=== PATIENT | male | born 1945 | race African-American/Black ===

== ENCOUNTER 2016-07-06 01:17 | Emergency (ER) | payer OTHER, MEDICARE ==
[2016-07-06] MEDS ORDERED: CIPROFLOXACIN 250 MG TABLET (RESTRICTED TO ID) PO ONE ×2 (01:25→01:31)
--- NOTE | 2016-07-06 01:25 | PDOC ---
History of Present Illness - General Chief Complaint: Urinary Problem Stated Complaint: URINARY RETENTION Time Seen by Provider: 07/06/16 01:25 History Source: Patient Exam Limitations: No Limitations - History of Present Illness Initial Comments: 07/06/16 01:26 This is an elderly 70-year-old man with history of urinary retention who comes in complaining of unable to urinate times last several hours. Fully was placed by nursing and return of about 700 mL of urine. Patient felt much better. Patient denied any fevers chills or abdominal pain or back pain. PAST MEDICAL HISTORY: Urinary retention PAST SURGICAL HISTORY: no significant history FAMILY HISTORY: no pertinant history SOCIAL HISTORY: Pt lives with family and is employed. MEDICATIONS: reviewed ALLERGIES: As per nursing notes Review of Systems General: No fevers or chills, no weakness, no weight loss HEENT: No change in vision. No sore throat,. No ear pain CardioVascular: No chest pain or shortness of breath Respiratory:No cough, or wheezing. Gastrointestinal: no nausea, vomitting, diarrhea or constipation, No rectal bleeding Genitourinary: No dysuria, hematuria, or frequency, urinary retention Musculoskeletal: No joint or muscle pain or swelling Neurologic: No headache, vertigo, dizziness or loss of consciousness Psychiatric: nor depression Skin: No rashes or easy bruising Endocrine: no increased thirst or abnormal weight change Allergic: no skin or latex allergy All other systems reviewed and normal Exam: General: Well-nourished well-developed individual, no acute distress HEENT: Throat: Normal, tonsils normal, no erythema or exudate Neck: Supple, no meningeal signs, no lymphadenopathy Eyes::Pupils equal reactive and round, extraocular motion intact Chest: Nontender to palpation Abdomen: Soft, nondistended, normal bowel sounds, nontender to palpation diffusely There is no back, or CVA tenderness Extremities: Warm, dry, no cyanosis, clubbing, or edema Skin: No rashes Neuro: Alert and oriented x3, nonfocal exam, grossly intact, normal gait Psych: Normal mood and affect Assessment and plan: This is a 70-year-old male who comes in complaining of acute urinary retention. Patient had a Wills placed with return of approximately 700 mL of urine. Patient started on Cipro to prevent a urinary tract infection and was discharged home with a day. Patient has a urologist he can follow-up with. Past History - Past Medical History Allergies/Adverse Reactions: Allergies Allergy/AdvReac Type Severity Reaction Status Date / Time No Known Allergies Allergy Verified 07/06/16 01:18 Home Medications: Ambulatory Orders Dutasteride/Tamsulosin HCl [Amber 0.5-0.4 mg Capsule] 1 each PO DAILY 10/26/13 Travoprost [Travatan Z] 1 drop OU DAILY 01/25/16 Ciprofloxacin [Cipro (Restricted To Id)] 250 mg PO BID #14 tablet 07/06/16 Cancer: Yes (COLON AND LUNG, NOT prostate) Disorders: Yes (URINARY RETENTION, PROSTATE HYPERTOPHY) - Surgical History Abdominal Surgery: Yes (COLON RESECTION TEMPORARY (NOW CLOSED) JEJUNOSTOMY) - Immunization History Immunization Up to Date: Yes - Psycho/Social/Smoking Cessation Hx Anxiety: No Suicidal Ideation: No Smoking Status: Yes Smoking History: Never smoked Have you smoked in the past 12 months: No Number of Cigarettes Smoked Daily: 1 Cigars Per Day: 0 'Breaking Loose' booklet given: 10/26/13 Hx Alcohol Use: Yes (RARE) Drug/Substance Use Hx: No Substance Use Type: None *DC/Admit/Observation/Transfer Diagnosis at time of Disposition: Urinary retention due to benign prostatic hyperplasia - Discharge Dispostion Disposition: HOME Condition at time of disposition: Stable Admit: No - Prescriptions Prescriptions: Ciprofloxacin [Cipro (Restricted To Id)] 250 mg PO BID #14 tablet - Patient Instructions Additional Instructions: Take Cipro 1 tablet twice a day to prevent a bladder infection. Return to the emergency department immediately with ANY new, persistent or worsening symptoms. Continue any medications as previously prescribed by your physician. You should follow up with your urologist as soon as possible regarding today's emergency department visit. . Please make sure your doctor reviews the results of your emergency evaluation. Thank you for coming to the Emergency Department today for your care. It was a pleasure to see you today. Please note that your evaluation is INCOMPLETE until you follow-up with your doctor.
[2016-07-06 01:28] VITALS: TEMP 97.4; BMI 24.3
[2016-07-06 01:45] VITALS: BP 148/94; PULSE 98
== END 2016-07-06 01:47 | disposition home or self-care (01) ==
LOC: FER 01:17
PROC: 0T9B70Z Drainage of Bladder with Drainage Device, Via Natural or Artificial Opening (ICD-10-PCS; principal; 2016-07-06)
DX: N40.1 Benign prostatic hyperplasia with lower urinary tract symptoms (principal); R33.8 Other retention of urine; Z85.038 Personal history of other malignant neoplasm of large intestine; Z72.0 Tobacco use
CPT/HCPCS: 51702; 99282-25

== ENCOUNTER 2016-09-08 12:32 | Emergency (ER) | payer OTHER, MEDICARE ==
--- NOTE | 2016-09-08 12:37 | PDOC ---
History of Present Illness - General Chief Complaint: Urinary Problem Stated Complaint: URINARY RETENTION Time Seen by Provider: 09/08/16 12:36 History Source: Patient Exam Limitations: No Limitations - History of Present Illness Travel History: No Initial Comments: 09/08/16 13:25 70y M hx of BPH, colon ca s/p surgery presents with urinary retention. Pt states that he last urinated last night, and then was unable to urinate this morning when he got up. pt denies any back pain, abd pain, fever/chills, dysuria , weakness. pts is in [facility] Past History - Past Medical History Allergies/Adverse Reactions: Allergies Allergy/AdvReac Type Severity Reaction Status Date / Time No Known Allergies Allergy Verified 09/08/16 12:34 Home Medications: Ambulatory Orders Dutasteride/Tamsulosin HCl [Amber 0.5-0.4 mg Capsule] 1 each PO DAILY 10/26/13 Travoprost [Travatan Z] 1 drop OU DAILY 01/25/16 Cancer: Yes (COLON AND LUNG, NOT prostate) Disorders: Yes (URINARY RETENTION, PROSTATE HYPERTOPHY) - Surgical History Abdominal Surgery: Yes (COLON RESECTION TEMPORARY (NOW CLOSED) JEJUNOSTOMY) - Immunization History Immunization Up to Date: Yes - Psycho/Social/Smoking Cessation Hx Anxiety: No Suicidal Ideation: No Smoking Status: Yes Smoking History: Never smoked Have you smoked in the past 12 months: No Number of Cigarettes Smoked Daily: 1 Cigars Per Day: 0 'Breaking Loose' booklet given: 10/26/13 Hx Alcohol Use: Yes (RARE) Drug/Substance Use Hx: No Substance Use Type: None Review of Systems - Review of Systems Able to Perform ROS?: Yes Comments:: 09/08/16 13:28 Constitutional - no reported Fever, Chills, HEENT: no reported vision changes, sore throat Respiratory: no reported cough, sob, hemoptysis Cardiac: no reported chest pain, palpitations, light headedness, leg swelling Abd/GI: no reported abd pain, nausea, vomiting, blood per rectum, melena, diarrhea : +urinary retention no reported dysuria, frequency, discharge Musculskelatal - no reported back pain, joint swelling skin - no reported bruising, erythema, rash neurological: no reported headache, numbness, focal weakness, tingling, ataxia, hematologic: no reported anemia, easy bruising, easy bleeding GENERAL: The patient is awake, alert, and fully oriented, Nontoxic - in no acute distress. HEAD: Normocephalic, atraumatic. EYES: extraocular movements intact, sclera anicteric, conjunctiva clear. LUNGS: Breath sounds equal, clear to auscultation bilaterally. No wheezes, no rhonchi, no rales. HEART: Regular rate and rhythm, normal S1 and S2 without murmur, rub or gallop. ABDOMEN: Soft, nontender, normoactive bowel sounds. No guarding, no rebound. . No CVA tenderness EXTREMITIES: Normal range of motion, no edema. NEUROLOGICAL: No facial assymetry, Normal speech, moving all 4 extremities spontaneously and symmetricaly PSYCH: Normal mood, normal affect. SKIN: Warm, Dry, normal turgor, Medical Decision Making - Medical Decision Making 09/08/16 13:29 caballero placed with output of approx 1L of urine awaiting ua to r/o UTI will likely dc with caballero bag and fu if UA negative 09/08/16 14:29 no signs of UTI will dc with fu return precautions were discussed I discussed the physical exam findings, ancillary test results and final diagnoses with the patient. I answered all of the patient's questions. The patient was satisfied with the care received and felt comfortable with the discharge plan and treatment plan. The patient will call their primary care physician within 24 hours to arrange follow-up and will return to the Emergency Department with any new, persistent or worsening symptoms. *DC/Admit/Observation/Transfer Diagnosis at time of Disposition: Urinary retention due to benign prostatic hyperplasia - Discharge Dispostion Disposition: HOME Condition at time of disposition: Stable Admit: No - Referrals Referrals: George Jimenez MD [Staff Physician] - - Patient Instructions Printed Discharge Instructions: DI for Urinary Retention in Men Additional Instructions: Return to the emergency department immediately with ANY new, persistent or worsening symptoms. You MUST call and follow up with your doctor tomorrow for further evaluation of your symptoms. Results were discussed with you. Please make sure your doctor reviews the results of your emergency evaluation. If you had any xrays during your visit, it was read preliminarily by myself, a Radiologist will review it and if there are any additional findings we will call you.
[2016-09-08 12:46] VITALS: BP 149/81; PULSE 92; TEMP 97.8; BMI 24.3
[2016-09-08 14:13] LABS: URINE APPEARANCE Clear; URINE BILIRUBIN Negative (NEGATIVE); URINE GLUCOSE (UA) Negative (NEGATIVE); URINE KETONE Trace (NEGATIVE); URINE LEUK ESTERASE Negative (NEGATIVE); URINE NITRITE Negative (NEGATIVE); URINE PROTEIN Negative (NEGATIVE); URINE UROBILINOGEN 0.2 E.U/dl (0.2-1.0)
[2016-09-08 14:26] LABS: URINE COLOR YELLOW
[2016-09-08 22:49] LABS: URINE BLOOD Trace-intact (NEGATIVE)
== END 2016-09-08 15:13 | disposition home or self-care (01) ==
LOC: FER 12:32
PROC: 0T9B70Z Drainage of Bladder with Drainage Device, Via Natural or Artificial Opening (ICD-10-PCS; principal; 2016-09-08)
DX: N40.1 Benign prostatic hyperplasia with lower urinary tract symptoms (principal); R33.8 Other retention of urine; Z85.038 Personal history of other malignant neoplasm of large intestine
CPT/HCPCS: 51702; 81003; 87086; 99284-25

== ENCOUNTER 2016-12-20 13:05 | Emergency (ER) | payer OTHER, MEDICARE ==
[2016-12-20 13:36] VITALS: BP 146/87; PULSE 89; TEMP 98; BMI 24.1
--- NOTE | 2016-12-20 13:44 | PDOC ---
History of Present Illness - General Chief Complaint: Urinary Problem Stated Complaint: URINARY RETENTION Time Seen by Provider: 12/20/16 13:08 History Source: Patient Exam Limitations: No Limitations - History of Present Illness Travel History: No Initial Comments: 12/20/16 13:26 71y M hx of bph, colon ca presents with urinary retention. last urine was last night approx 2am, since then he has been having some dribbling since last night. Pt states his retention is very sensitive to food items. He notes he occasionally has this problem. Pt denies any back pain, abd pain, f/c, dysuria , maloderous urine, generalized weakness. Pts is at [facility] Past History - Past Medical History Allergies/Adverse Reactions: Allergies Allergy/AdvReac Type Severity Reaction Status Date / Time No Known Allergies Allergy Verified 09/08/16 12:34 Home Medications: Ambulatory Orders Dutasteride/Tamsulosin HCl [Amber 0.5-0.4 mg Capsule] 1 each PO DAILY 10/26/13 Travoprost [Travatan Z] 1 drop OU DAILY 01/25/16 Cancer: Yes (COLON AND LUNG, NOT prostate) Disorders: Yes (URINARY RETENTION, PROSTATE HYPERTOPHY) - Surgical History Abdominal Surgery: Yes (COLON RESECTION TEMPORARY (NOW CLOSED) JEJUNOSTOMY) - Immunization History Immunization Up to Date: Yes - Psycho/Social/Smoking Cessation Hx Anxiety: No Suicidal Ideation: No Smoking Status: Yes Smoking History: Never smoked Have you smoked in the past 12 months: No Number of Cigarettes Smoked Daily: 1 Cigars Per Day: 0 'Breaking Loose' booklet given: 10/26/13 Hx Alcohol Use: Yes (RARE) Drug/Substance Use Hx: No Substance Use Type: None Review of Systems - Review of Systems Able to Perform ROS?: Yes Comments:: 12/20/16 13:44 Constitutional - no reported Fever, Chills, HEENT: no reported vision changes, sore throat Respiratory: no reported cough, sob, hemoptysis Cardiac: no reported chest pain, palpitations, light headedness, leg swelling Abd/GI: no reported abd pain, nausea, vomiting, blood per rectum, melena, diarrhea : +urinary retention no reported dysuria, frequency, discharge Musculskelatal - no reported back pain, joint swelling skin - no reported bruising, erythema, rash neurological: no reported headache, numbness, focal weakness, tingling, ataxia, hematologic: no reported anemia, easy bruising, easy bleeding *Physical Exam - Physical Exam Comments: 12/20/16 13:46 GENERAL: The patient is awake, alert, and fully oriented, Nontoxic - in no acute distress. ABDOMEN: Soft, nontender, slightly distended lower abdmen, normoactive bowel sounds. No guarding, no rebound. . No CVA tenderness SKIN: Warm, Dry, normal turgor, Medical Decision Making - Medical Decision Making 12/20/16 13:47 caballero placed with otput of 500cc of urine immediately will send for ua/culture jalen likely need leg bag and Urology fu 12/20/16 14:15 ua show smoderate bacteria but without LE, nitrites and is asypmtomatic will defer treatment with abx, awaiting cultures pt will fu with his PMD if cultures + will notify pt and give him rx for abx return prcautions were discussed I discussed the physical exam findings, ancillary test results and final diagnoses with the patient. I answered all of the patient's questions. The patient was satisfied with the care received and felt comfortable with the discharge plan and treatment plan. The patient will call their primary care physician within 24 hours to arrange follow-up and will return to the Emergency Department with any new, persistent or worsening symptoms. *DC/Admit/Observation/Transfer Diagnosis at time of Disposition: Urinary retention due to benign prostatic hyperplasia - Discharge Dispostion Disposition: HOME Condition at time of disposition: Improved Admit: No - Referrals Referrals: José Ruiz MD [Primary Care Provider] - - Patient Instructions Printed Discharge Instructions: DI for Urinary Retention in Men Additional Instructions: Return to the emergency department immediately with ANY new, persistent or worsening symptoms including fever/chills, back pain, abdominal pain or any other concerns. You MUST call and follow up with your urologist within 2-3 days for further evaluation of your symptoms. Results were discussed with you. Please make sure your doctor reviews the results of your emergency evaluation. Your urinalysis showed some bacteria but without other markers suggestive of an infection. We have sent a urine culture - if the culture is positive and the results are pending, it will probalby take 1-2 days before results are back, we will call you back and send an antibiotic to your pharmacy. Print Language: GREENLANDIC
[2016-12-20 13:49] LABS: URINE APPEARANCE Clear; URINE BILIRUBIN Negative (NEGATIVE); URINE GLUCOSE (UA) Negative (NEGATIVE); URINE KETONE Negative (NEGATIVE); URINE LEUK ESTERASE Negative (NEGATIVE); URINE NITRITE Negative (NEGATIVE); URINE PROTEIN Negative (NEGATIVE); URINE UROBILINOGEN 0.2 (0.2-1.0)
[2016-12-20 13:50] LABS: URINE BLOOD 1+ (NEGATIVE); URINE COLOR YELLOW; URINE WBC 0-3 (3-5)
[2016-12-20 13:51] LABS: URINE BACTERIA MODERATE /hpf (NEGATIVE)
== END 2016-12-20 14:24 | disposition home or self-care (01) ==
LOC: FER 13:05
PROC: 0T9B70Z Drainage of Bladder with Drainage Device, Via Natural or Artificial Opening (ICD-10-PCS; principal; 2016-12-20)
DX: N40.1 Benign prostatic hyperplasia with lower urinary tract symptoms (principal); R33.8 Other retention of urine; Z85.038 Personal history of other malignant neoplasm of large intestine; Z85.118 Personal history of other malignant neoplasm of bronchus and lung
CPT/HCPCS: 81003; 81015; 87086; 99282-25

== ENCOUNTER 2017-02-24 11:40 | Emergency (ER) | payer OTHER, MEDICARE ==
[2017-02-24 11:47] VITALS: BP 146/86; PULSE 111; TEMP 98.5; BMI 25.8
[2017-02-24 12:08] LABS: PH,URINE 5.5 (4.5-8); URINE APPEARANCE Clear; URINE BILIRUBIN Negative (NEGATIVE); URINE GLUCOSE (UA) Negative (NEGATIVE); URINE KETONE Negative (NEGATIVE); URINE NITRITE Positive (NEGATIVE); URINE PROTEIN Negative (NEGATIVE); URINE UROBILINOGEN 0.2 (0.2-1.0)
[2017-02-24 12:13] LABS: URINE BLOOD 1+ (NEGATIVE); URINE COLOR YELLOW; URINE LEUK ESTERASE 1+ (NEGATIVE)
--- NOTE | 2017-02-24 12:17 | PDOC ---
History of Present Illness - General Chief Complaint: Urinary Problem Stated Complaint: urinary retention Time Seen by Provider: 02/24/17 11:55 - History of Present Illness Initial Comments: 02/24/17 12:13 Chief complaint: Urinary retention and suprapubic pain History of present illness: Urinating only drops of urine since last night, with pain and swelling in the suprapubic area. Periodic bouts of urinary retention in the past, most frequently December, treated with temporary Wills catheterization and resolving spontaneously. No procedures have been necessary thus far. Review of systems: Denies fever/chills, URI symptoms, sore throat, cough, chest pain, shortness of breath, nausea, vomiting, diarrhea, visual or focal neurologic symptoms, unsteadiness of gait. Past medical history: Colon cancer with resection 2001, no recurrence. BPH. Glaucoma. Social/family history reviewed and noncontributory Physical exam: Alert and oriented well-developed well-nourished mild distress due to urinary retention Vital signs normal except for mild tachycardia No pallor or icterus. PERRLA, ENT clear Neck supple without bruit mass or nodes Lungs clear CV regular without murmur rub or gallop Abdomen mildly distended, with bladder palpable and percussing at the umbilicus. No guarding or rebound. No CVAT Impression: Urinary retention Plan: Wills catheterization and urology referral as in the past. 02/24/17 12:17 Past History - Past Medical History Allergies/Adverse Reactions: Allergies Allergy/AdvReac Type Severity Reaction Status Date / Time No Known Allergies Allergy Verified 02/24/17 11:42 Home Medications: Ambulatory Orders Dutasteride/Tamsulosin HCl [Amber 0.5-0.4 mg Capsule] 1 each PO DAILY 10/26/13 Travoprost [Travatan Z] 1 drop OU DAILY 01/25/16 Ciprofloxacin 250 mg PO BID #10 [facility]..rec 02/24/17 Cancer: Yes (COLON AND LUNG, NOT prostate) COPD: No Disorders: Yes (URINARY RETENTION, PROSTATE HYPERTOPHY) - Surgical History Abdominal Surgery: Yes (COLON RESECTION TEMPORARY (NOW CLOSED) JEJUNOSTOMY) - Immunization History Immunization Up to Date: Yes - Suicide/Smoking/Psychosocial Hx Smoking Status: Yes Smoking History: Never smoked Have you smoked in the past 12 months: No Number of Cigarettes Smoked Daily: 1 Cigars Per Day: 0 'Breaking Loose' booklet given: 10/26/13 Hx Alcohol Use: No Drug/Substance Use Hx: No Substance Use Type: None *Physical Exam - Vital Signs Last Vital Signs Temp Pulse Resp BP Pulse Ox 98.5 F 111 H 18 146/86 96 02/24/17 11:41 02/24/17 11:41 02/24/17 11:41 02/24/17 11:41 02/24/17 11:41 Medical Decision Making - Medical Decision Making 02/24/17 12:38 Patient more comfortable after bladder decompression. Large amount of clear urine obtained. Urinalysis shows possible infection with nitrites, leukocyte esterase, and a small amount of blood. *DC/Admit/Observation/Transfer Diagnosis at time of Disposition: Urinary retention UTI (urinary tract infection) Qualifiers: Urinary tract infection type: acute cystitis Hematuria presence: without hematuria Qualified Code(s): N30.00 - Acute cystitis without hematuria - Discharge Dispostion Disposition: HOME Condition at time of disposition: Improved Admit: No - Prescriptions Prescriptions: Ciprofloxacin 250 mg PO BID #10 [facility].[email or web address] - Referrals Referrals: Shakila Palm MD [Primary Care Provider] - - Patient Instructions Printed Discharge Instructions: How to Care for Your Wills Catheter -- Male, DI for Urinary Retention in Men Additional Instructions: See your urologist within 5 days. Recheck immediately if fever, back pain - Post Discharge Activity
[2017-02-24 12:41] LABS: URINE RBC 0-2 /hpf (0-3); URINE WBC 20-40 (0-2)
[2017-02-24 12:42] LABS: URINE BACTERIA MANY /hpf (NEGATIVE)
== END 2017-02-24 12:43 | disposition home or self-care (01) ==
LOC: FER 11:40
PROC: 0T9B70Z Drainage of Bladder with Drainage Device, Via Natural or Artificial Opening (ICD-10-PCS; principal; 2017-02-24)
DX: N30.00 Acute cystitis without hematuria (principal); R33.9 Retention of urine, unspecified; Z85.038 Personal history of other malignant neoplasm of large intestine; N40.0 Benign prostatic hyperplasia without lower urinary tract symptoms
CPT/HCPCS: 51702; 81003; 81015; 87086; 87186; 99282-25

== ENCOUNTER 2017-09-17 13:34 | Emergency (ER) | payer OTHER, BC ==
--- NOTE | 2017-09-17 14:06 | PDOC ---
History of Present Illness - General History Source: Patient Exam Limitations: No Limitations <Anupama Bauman - Last Filed: 09/17/17 14:31> - General History Source: Patient Exam Limitations: No Limitations - History of Present Illness Initial Comments: 09/17/17 14:18 This patient is a 71 yo M with a history of urinary retention, related to a "Sensitive prostate" presents to the ER in urinary retention. The patient states he last urinated yesterday at approximately 11:30PM. The patient complains he has not been able to urinate throughout the day prompting him to come to the ER. The patient has been seen at this ER multiple times for similar symptoms, last seen approximately seven months ago. The patient reports he has required temporary catheter use in the past but has not required surgery. Currently following with a urologist. The patient denies back pain, abdominal pain, fever/chills, dysuria, or weakness. Past medical history: Resection of colon cancer over 15 years ago without recurrence. BPH. Glaucoma. Allergies: None Social history: No drug, alcohol, or cigarette use. PCP: Dr. Smita Lopez <Marilyn Washington - Last Filed: 09/17/17 14:47> - General Chief Complaint: Urinary Problem Stated Complaint: URINARY RETENTION Time Seen by Provider: 09/17/17 13:35 Past History - Past Medical History Cancer: Yes (COLON AND LUNG, NOT prostate) COPD: No Disorders: Yes (URINARY RETENTION, PROSTATE HYPERTOPHY) - Surgical History Abdominal Surgery: Yes (COLON RESECTION TEMPORARY (NOW CLOSED) JEJUNOSTOMY) - Immunization History Immunization Up to Date: Yes - Suicide/Smoking/Psychosocial Hx Smoking Status: Yes Smoking History: Never smoked Have you smoked in the past 12 months: No Number of Cigarettes Smoked Daily: 1 Cigars Per Day: 0 'Breaking Loose' booklet given: 10/26/13 Hx Alcohol Use: No Drug/Substance Use Hx: No Substance Use Type: None <Anupama Bauman - Last Filed: 09/17/17 14:31> <Marilyn Washington - Last Filed: 09/17/17 14:47> - Past Medical History Allergies/Adverse Reactions: Allergies Allergy/AdvReac Type Severity Reaction Status Date / Time No Known Allergies Allergy Verified 09/17/17 14:34 Home Medications: Ambulatory Orders Dutasteride/Tamsulosin HCl [Amber 0.5-0.4 mg Capsule] 1 each PO DAILY 10/26/13 Travoprost [Travatan Z] 1 drop OU DAILY 01/25/16 Review of Systems - Review of Systems Able to Perform ROS?: Yes Comments:: 09/17/17 14:44 GENERAL/CONSTITUTIONAL: No fever or chills. No weakness. HEAD, EYES, EARS, NOSE AND THROAT: No change in vision. No ear pain or discharge. No sore throat. CARDIOVASCULAR: No chest pain or shortness of breath. RESPIRATORY: No cough, wheezing, or hemoptysis. GASTROINTESTINAL: (+) Mild lower abdominal pain. No nausea, vomiting, diarrhea or constipation. GENITOURINARY: (+) Urinary retention. No hematuria or frequency. MUSCULOSKELETAL: No joint or muscle swelling or pain. No neck or back pain. SKIN: No rash NEUROLOGIC: No headache, vertigo, loss of consciousness, or change in strength/ sensation. ENDOCRINE: No increased thirst. No abnormal weight change. HEMATOLOGIC/LYMPHATIC: No anemia, easy bleeding, or history of blood clots. ALLERGIC/IMMUNOLOGIC: No hives or skin allergy. <Marilyn Washington - Last Filed: 09/17/17 14:47> *Physical Exam - Physical Exam Comments: 09/17/17 14:45 GENERAL: The patient is in no acute distress. HEAD: Normal with no signs of trauma. EYES: PERRLA, EOMI, sclera anicteric, conjunctiva clear. ENT: Ears normal, nares patent, oropharynx clear without exudates. Moist mucous membranes. NECK: Normal range of motion, supple without lymphadenopathy, JVD, or masses. LUNGS: Breath sounds equal, clear to auscultation bilaterally. No wheezes, and no crackles. HEART:Regular rate and rhythm, normal S1 and S2 without murmur, rub or gallop. ABDOMEN: Soft, nontender, normoactive bowel sounds. No guarding, no rebound. No masses palpable. : (+) Wills in place. EXTREMITIES: Normal range of motion, no edema. No clubbing or cyanosis. No erythema, or tenderness. NEUROLOGICAL: Cranial nerves II through XII grossly intact. Normal speech. No focal neurological deficits. MUSCULOSKELETAL: Back non-tender to palpation, no CVA tenderness SKIN: Warm, Dry, normal turgor, no rashes or lesions noted. <Marilyn Washington - Last Filed: 09/17/17 14:47> Medical Decision Making - Medical Decision Making 09/17/17 14:31 Mr. Rojas is a 71-year-old male who has had repeated presentations to the emergency department due to urinary retention. He's followed by a urologist. He states that at approximately 11:30 PM he believes that was the last time he urinated. He reported lower abdominal discomfort. Wills catheter was placed immediately with return of clear yellow urine, approximately 600 mL. Patient assess after Wills catheter placed. Abdomen is soft and nontender. Wills in place with return of approximately 600 mL of urine. Discharge diagnosis: Urinary retention due to mechanical obstruction versus urinary tract infection. Urinalysis sent Laboratory Tests 08/05/15 09/17/17 07:20 14:08 Urine Glucose (UA) Negative Urine Ketones Negative Urine Blood Trace-intact Negative Urine Nitrite Negative Negative Ur Leukocyte Esterase Negative Negative UA negative Will discharge to home Follow up with Urologist Clinical Impression: Urinary retention, initial present <Anupama Bauman - Last Filed: 09/17/17 14:31> *DC/Admit/Observation/Transfer - Discharge Dispostion Decision to Admit order: No <Anupama Bauman - Last Filed: 09/17/17 14:31> - Attestations Scribe Attestion: 09/17/17 14:47 Documentation prepared by Marilyn Washington, acting as ophthalmic medical technologist for Anupama Bauman MD. <Marilyn Washington - Last Filed: 09/17/17 14:47> Diagnosis at time of Disposition: Urinary retention with incomplete bladder emptying - Discharge Dispostion Disposition: HOME Condition at time of disposition: Stable - Patient Instructions Printed Discharge Instructions: DI for Urinary Retention in Men
[2017-09-17 14:20] LABS: URINE APPEARANCE Clear; URINE BILIRUBIN Negative (NEGATIVE); URINE BLOOD Negative (NEGATIVE); URINE GLUCOSE (UA) Negative (NEGATIVE); URINE KETONE Negative (NEGATIVE); URINE LEUK ESTERASE Negative (NEGATIVE); URINE NITRITE Negative (NEGATIVE); URINE PROTEIN Negative (NEGATIVE); URINE UROBILINOGEN 0.2 (0.2-1.0)
[2017-09-17 14:24] LABS: URINE COLOR YELLOW
[2017-09-17 14:33] VITALS: BP 147/83; PULSE 89; TEMP 98.1; BMI 23.1
== END 2017-09-17 14:47 | disposition home or self-care (01) ==
LOC: FER 13:34
PROC: 0T9B70Z Drainage of Bladder with Drainage Device, Via Natural or Artificial Opening (ICD-10-PCS; principal; 2017-09-17)
DX: R33.9 Retention of urine, unspecified (principal)
CPT/HCPCS: 81003; 87086; 99282-25

== ENCOUNTER 2017-09-30 10:40 | Emergency (ER) | payer OTHER, BC ==
[2017-09-30 10:54] VITALS: BP 146/80; PULSE 96; TEMP 99; BMI 23.1
[2017-09-30 11:15] LABS: URINE APPEARANCE CLOUDY; URINE BILIRUBIN Negative (NEGATIVE); URINE COLOR AMBER; URINE GLUCOSE (UA) Negative (NEGATIVE); URINE KETONE Negative (NEGATIVE); URINE LEUK ESTERASE 1+ (NEGATIVE); URINE NITRITE Positive (NEGATIVE); URINE PROTEIN Negative (NEGATIVE); URINE UROBILINOGEN 0.2 (0.2-1.0)
[2017-09-30 11:28] LABS: URINE BACTERIA MANY /hpf (NEGATIVE); URINE WBC 50-80 (0-2)
--- NOTE | 2017-09-30 12:28 | PDOC ---
History of Present Illness - General Chief Complaint: Urinary Problem Stated Complaint: URINARY RETENTION Time Seen by Provider: 09/30/17 10:52 History Source: Patient (Patient walked in complaining of inability to urinate, shortly after having left eye catarct surgery.) Exam Limitations: No Limitations - History of Present Illness Timing/Duration: 24 hours Severity: moderate Modifying Factors: worse with: cold therapy, eating, immobilization, medication , movement, rest, other Associated Symptoms: reports: denies symptoms Beta Shane Contraindications(Core Measure): Yes: Not Prescribed Past History - Travel Traveled outside of the country in the last 30 days: No - Past Medical History Allergies/Adverse Reactions: Allergies Allergy/AdvReac Type Severity Reaction Status Date / Time No Known Allergies Allergy Verified 09/30/17 10:42 Home Medications: Ambulatory Orders Dutasteride/Tamsulosin HCl [Amber 0.5-0.4 mg Capsule] 1 each PO DAILY 10/26/13 Travoprost [Travatan Z] 1 drop OU DAILY 01/25/16 Levofloxacin 500 mg PO AM #10 tab 09/30/17 Cancer: Yes (COLON AND LUNG, NOT prostate) COPD: No Disorders: Yes (URINARY RETENTION, PROSTATE HYPERTOPHY) Other medical history: BPH - Surgical History Abdominal Surgery: Yes (COLON RESECTION TEMPORARY (NOW CLOSED) JEJUNOSTOMY) - Immunization History Immunization Up to Date: Yes - Suicide/Smoking/Psychosocial Hx Smoking Status: Yes Smoking History: Never smoked Have you smoked in the past 12 months: No Number of Cigarettes Smoked Daily: 1 Cigars Per Day: 0 Information on smoking cessation initiated: No 'Breaking Loose' booklet given: 10/26/13 Hx Alcohol Use: No (glass of wine 2-3x/week) Drug/Substance Use Hx: No Substance Use Type: None Review of Systems - Review of Systems Able to Perform ROS?: Yes Is the patient limited [place] proficient: Yes Constitutional: Yes: Symptoms Reported, Malaise HEENTM: No: Symptoms Reported, See HPI, Eye Pain, Blurred Vision, Tearing, Recent change in vision, Double Vision, Cataracts, Ear Pain, Ocular Prothesis, Ear Discharge, Nose Pain, Nose Congestion, Tinnitus, Nose Bleeding, Hearing Loss , Throat Pain, Throat Swelling, Mouth Pain, Dental Problems, Difficulty Swallowing, Mouth Swelling, Other Respiratory: No: Symptoms reported, See HPI, Cough, Orthopnea, Shortness of Breath, SOB with Exertion, SOB at Rest, Stridor, Wheezing, Productive cough, Hemoptysis, Other Cardiac (ROS): No: Symptoms Reported, See HPI, Chest Pain, Edema, Irregular Heart Rate, Lightheadedness, Palpitations, Syncope, Chest Tightness, Other ABD/GI: No: Symptoms Reported, See HPI, Abdominal Distended, Abd. Pain w/ defecation, Blood Streaked Bowels, Constipated, Diarrhea, Difficulty Swallowing , Nausea, Poor Appetite, Poor Fluid Intake, Rectal Bleeding, Vomiting, Indigestion, Abdominal cramping, Tarry Stools, Other : Yes: Symptoms Reported, See HPI All Other Systems: Reviewed and Negative *Physical Exam - Vital Signs Last Vital Signs Temp Pulse Resp BP Pulse Ox 99 F 96 H 18 146/80 96 09/30/17 10:40 09/30/17 10:40 09/30/17 10:40 09/30/17 10:40 09/30/17 10:40 - Physical Exam General Appearance: Yes: Nourished, Appropriately Dressed, Moderate Distress ED Treatment Course - ADDITIONAL ORDERS Additional order review: Laboratory Results 09/30/17 11:00 Urine Color Naomie Urine Appearance Cloudy Urine pH 5.0 Ur Specific [place] 1.025 Urine Protein Negative Urine Glucose (UA) Negative Urine Ketones Negative Urine Blood Trace-lysed H Urine Nitrite Positive Urine Bilirubin Negative Urine Urobilinogen 0.2 Ur Leukocyte Esterase 1+ H Urine RBC 5-8 Urine WBC 50-80 Urine Bacteria Many *DC/Admit/Observation/Transfer Diagnosis at time of Disposition: Urinary retention UTI (urinary tract infection) Qualifiers: Urinary tract infection type: acute cystitis Hematuria presence: without hematuria Qualified Code(s): N30.00 - Acute cystitis without hematuria - Discharge Dispostion Condition at time of disposition: Stable Decision to Admit order: No - Referrals Referrals: José Ruiz MD [Non Staff, Medical] - - Patient Instructions Printed Discharge Instructions: Urinary Tract Infection, DI for Urinary Retention in Men Additional Instructions: Take antibiotics as instructed Call Dr Ruiz for apointment - Post Discharge Activity
== END 2017-09-30 13:20 | disposition home or self-care (01) ==
LOC: FER 10:40
DX: N30.00 Acute cystitis without hematuria (principal); R33.9 Retention of urine, unspecified
CPT/HCPCS: 81003; 81015; 87086; 87186; 99284-25

== ENCOUNTER 2017-10-17 09:28 | Emergency (ER) | payer BC, OTHER ==
--- NOTE | 2017-10-17 09:33 | PDOC ---
History of Present Illness - General Chief Complaint: Urinary Problem Stated Complaint: URINARY RETENTION History Source: Patient Exam Limitations: No Limitations - History of Present Illness Initial Comments: Pt with PMH of urinary retention 2/2 BPH, presents with urinary retention for 1 day. Pt states that his retention is usually exacerbated by acidic and salty foods. Pt states he ate chicken wings 10/14 (3 days prior to presentation), and he noticed increased urinary frequency and inability to produce urine, which worsened over the 3 days. Pt has been able to urinate in small volume, with no dysuria or hematuria. He states this episode is similar to his prior urinary retention. Pt also denies chest and abdominal pain, fevers/chills, nausea/ vomiting. He has been tolerating PO intake. Pt was treated for UTI with 500 mg Levofloxacin on 09/30/2017 after presenting with similar symptoms. 10/17/17 12:34 Beta Shane Contraindications(Core Measure): Yes: Not Prescribed Beta Shane Given by EMS(Core Measure): No Beta Shane Taken at Home(Core Measure): No Past History - Travel Traveled outside of the country in the last 30 days: No Close contact w/someone who was outside of country & ill: No - Past Medical History Allergies/Adverse Reactions: Allergies Allergy/AdvReac Type Severity Reaction Status Date / Time No Known Allergies Allergy Verified 10/17/17 09:28 Home Medications: Ambulatory Orders Dutasteride/Tamsulosin HCl [Amber 0.5-0.4 mg Capsule] 1 each PO DAILY 10/26/13 Travoprost [Travatan Z] 1 drop OU DAILY 01/25/16 levoFLOXacin [Levaquin -] 250 mg PO Q48H #7 tablet 09/30/17 Cancer: Yes (COLON AND LUNG, NOT prostate) COPD: No Disorders: Yes (URINARY RETENTION, PROSTATE HYPERTOPHY) - Surgical History Abdominal Surgery: Yes (COLON RESECTION TEMPORARY (NOW CLOSED) JEJUNOSTOMY) - Immunization History Immunization Up to Date: Yes - Suicide/Smoking/Psychosocial Hx Smoking Status: Yes Smoking History: Never smoked Have you smoked in the past 12 months: No Number of Cigarettes Smoked Daily: 1 Cigars Per Day: 0 'Breaking Loose' booklet given: 10/26/13 Hx Alcohol Use: No (glass of wine 2-3x/week) Drug/Substance Use Hx: No Substance Use Type: None Review of Systems - Review of Systems Able to Perform ROS?: Yes Is the patient limited [place] Citizen proficient: No Constitutional: No: Chills, Diaphoresis, Fever, Loss of Appetite, Unintentional Wgt. Loss HEENTM: Yes: Eye Pain (recent cataract surgery), Recent change in vision ( recent cataract surgery). No: Throat Swelling, Difficulty Swallowing Respiratory: No: Cough, Orthopnea, Shortness of Breath, Productive cough Cardiac (ROS): No: Chest Pain, Edema, Lightheadedness, Palpitations, Chest Tightness ABD/GI: No: Abdominal Distended, Abd. Pain w/ defecation, Blood Streaked Bowels , Constipated, Diarrhea, Nausea, Poor Appetite, Poor Fluid Intake, Rectal Bleeding, Vomiting, Indigestion, Abdominal cramping : Yes: Frequency, Urgency. No: Burning, Dysuria, Discharge, Flank Pain, Hematuria, Incontinence, Pain, Testicular Mass, Testicular Swelling, Testicular Pain Musculoskeletal: No: Back Pain Integumentary: No: Bruising, Erythema Neurological: No: Headache, Numbness Endocrine: No: Increased Thirst, Increased Urine Hematologic/Lymphatic: No: Blood Clots, Swollen Glands All Other Systems: Reviewed and Negative *Physical Exam - Physical Exam General Appearance: Yes: Nourished, Appropriately Dressed, Thin. No: Apparent Distress HEENT: positive: EOMI, FRANK, Normal ENT Inspection, Normal Voice, Symmetrical Neck: positive: Trachea midline, Normal Thyroid, Supple. negative: Tender Respiratory/Chest: positive: Lungs Clear, Normal Breath Sounds. negative: Chest Tender, Respiratory Distress, Accessory Muscle Use Cardiovascular: positive: Regular Rhythm, Regular Rate. negative: Edema, JVD, Murmur, Irregularly Irregular Vascular Pulses: Dorsalis-Pedis (R): 4+, Doralis-Pedis (L): 4+ Gastrointestinal/Abdominal: positive: Normal Bowel Sounds, Flat, Soft. negative : Tender, Organomegaly, Pulsatile Mass, Distended, Guarding, Rebound, Tenderness Male Genitalia: positive: normal genitalia. negative: discharge (No discharge or bleeding at site of Caballero. Clear, yellow urine drained ~325 mL.) Lymphatic: negative: Adenopathy, Tenderness Musculoskeletal: positive: Normal Inspection. negative: CVA Tenderness Extremity: positive: Normal Capillary Refill, Normal Inspection, Normal Range of Motion. 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 Pt discomfort relieved. UA + culture sent for analysis. Pt required no additional pain control. 10/17/17 10:59 Pt continues to have symptomatic relief and denies pain. Waiting for UA results. 10/17/17 12:57 (Pt discharged, entered later). UA negative for UTI. Pt symptoms completely resolved after caballero catheter. Pt discharged with leg bag. Dr. Ruiz called and alerted of pt visit in ED. He agreed with treatment and will follow up with pt. *DC/Admit/Observation/Transfer Diagnosis at time of Disposition: Urinary retention - Discharge Dispostion Disposition: HOME Condition at time of disposition: Improved Decision to Admit order: No - Referrals Referrals: Smita Lopez MD [Primary Care Provider] - José Ruiz MD [Non Staff, Medical] - - Patient Instructions Printed Discharge Instructions: How to Care for Your Caballero Catheter -- Male, DI for Urinary Retention in Men Additional Instructions: wear caballero leg bag until follow up with your urologist. call to schedule for this week. return for inability to drain bag or decreasing urine output, fever, vomiting, abdominal pain or any concerns. - Post Discharge Activity
[2017-10-17 09:50] VITALS: BP 168/98; PULSE 98; TEMP 98.3; BMI 23.1
[2017-10-17 10:51] LABS: URINE APPEARANCE CLEAR; URINE BILIRUBIN NEGATIVE (NEGATIVE); URINE COLOR YELLOW; URINE GLUCOSE (UA) NEGATIVE (NEGATIVE); URINE KETONE NEGATIVE (NEGATIVE)
--- NOTE | 2017-10-17 10:51 | PDOC ---
Attending Attestation - Resident Resident Name: JammieSwati - ED Attending Attestation I have performed the following: I have examined & evaluated the patient, The case was reviewed & discussed with the resident, I agree w/resident's findings & plan, Exceptions are as noted - HPI HPI: 10/17/17 10:49 71-year-old male with a history of pH and frequent UTIs here today complaining of urinary retention since the night previous. Patient has had decreasing urine output over the last few days has urinary frequency and urgency but no dysuria. Denies fevers chills this a.m. he was unable to pass urine now complaining of mild lower abdominal discomfort. Patient has had Foleys for retention in the past and is followed by Dr. Fletcher urologist no flank pain no hematuria no nausea no vomiting - Physicial Exam PE: 10/17/17 10:50 Awake alert no acute distress. Lungs are clear bilaterally heart is regular no murmurs rubs or gallops. Abdomen is soft nontender (post Wills catheter (. Extremities are warm and well perfused no peripheral edema no CVA tenderness neurologically patient is alert and oriented 3 - Medical Decision Making 10/17/17 10:50 Differential diagnosis includes urinary tract infection and subsequent retention , worsening BPH. Plan Wills catheter placed to relieve retention patient with 350 ML's urine output immediately. UA urine culture will likely be DC with a leg Wills bag and follow up with his urologist
[2017-10-17 10:52] LABS: PH,URINE 5.5 (4.5-8); URINE LEUK ESTERASE NEGATIVE (NEGATIVE); URINE NITRITE NEGATIVE (NEGATIVE); URINE PROTEIN NEGATIVE (NEGATIVE); URINE UROBILINOGEN 0.2 (0.2-1.0)
[2017-10-17 11:05] LABS: EPI CELLS FEW /HPF; URINE BACTERIA FEW /hpf (NEGATIVE); URINE WBC 0-2 (0-2)
[2017-10-17 11:06] LABS: AMORP URATES FEW /hpf (NONE SEEN)
== END 2017-10-17 12:05 | disposition home or self-care (01) ==
LOC: FER 09:28
PROC: 0T9B70Z Drainage of Bladder with Drainage Device, Via Natural or Artificial Opening (ICD-10-PCS; principal; 2017-10-17)
DX: R33.9 Retention of urine, unspecified (principal); N40.0 Benign prostatic hyperplasia without lower urinary tract symptoms; Z85.038 Personal history of other malignant neoplasm of large intestine; Z85.118 Personal history of other malignant neoplasm of bronchus and lung; Z87.440 Personal history of urinary (tract) infections
CPT/HCPCS: 81003; 81015; 87086; 99284-25

== ENCOUNTER 2018-05-29 11:18 | Emergency (ER) | payer OTHER, BC ==
[2018-05-29 11:33] VITALS: TEMP 98; BMI 24.3
--- NOTE | 2018-05-29 11:49 | PDOC ---
History of Present Illness - General Chief Complaint: Urinary Problem Stated Complaint: UNABLE TO URINATE Time Seen by Provider: 05/29/18 11:38 History Source: Patient Exam Limitations: No Limitations - History of Present Illness Initial Comments: 72 yo M w a hx of urinary retention 2/2 BPH, Resection of colon cancer 15+ years ago without recurrence, glaucoma, presents with urinary retention since last night at 10 pm. He states that this typically happens when he eats food that he shouldn't eat. Last night he had a BBQ which was the trigger for his current urinary retention. He has been seen in this ER many times for this exact same complaint of urinary retention. He was last seen here in October of 2017 for the same reason. He denies any associated fevers, chills, infections, flank pain, nausea, vomiting, back pain, headache, blurry vision, neck pain, chest pain, SOB, difficulty breathing, ankle/arm swelling, numbness, tingling, or vertigo. Meds: Dutasteride, Tamsulosin PSH: Cataract surgery, Partial colectomy Allergies: NKA, NKDA Social history: No drug, alcohol, or cigarette use. PCP: Dr. Smita Lopez Urologist: José Ruiz Past History - Past Medical History Allergies/Adverse Reactions: Allergies Allergy/AdvReac Type Severity Reaction Status Date / Time No Known Allergies Allergy Verified 10/17/17 09:28 Home Medications: Ambulatory Orders Dutasteride/Tamsulosin HCl [Amber 0.5-0.4 mg Capsule] 1 each PO DAILY 10/26/13 Travoprost [Travatan Z] 1 drop OU DAILY 01/25/16 levoFLOXacin [Levaquin -] 250 mg PO Q48H #7 tablet 09/30/17 Cancer: Yes (COLON AND LUNG, NOT prostate) COPD: No Disorders: Yes (URINARY RETENTION, PROSTATE HYPERTOPHY) - Surgical History Abdominal Surgery: Yes (COLON RESECTION TEMPORARY (NOW CLOSED) JEJUNOSTOMY) - Immunization History Immunization Up to Date: Yes - Suicide/Smoking/Psychosocial Hx Smoking Status: Yes Smoking History: Never smoked Have you smoked in the past 12 months: No Number of Cigarettes Smoked Daily: 1 Cigars Per Day: 0 'Breaking Loose' booklet given: 10/26/13 Hx Alcohol Use: No Drug/Substance Use Hx: No Substance Use Type: None Review of Systems - Review of Systems Able to Perform ROS?: Yes Comments:: CONSTITUTIONAL: Absent: fever, no chills, no fatigue EYES: Absent: visual changes ENT: Absent: ear pain, no sore throat CARDIOVASCULAR: Absent: chest pain, no palpitations RESPIRATORY: Absent: cough, no SOB GI: Absent: abdominal pain, no nausea, no vomiting, no constipation, no diarrhea GENITOURINARY: Present: Hesiatncy, urinary retention Absent: dysuria, no frequency, no hematuria MUSKULOSKELETAL: Absent: back pain, no arthralgia, no myalgia SKIN: Absent: rash NEURO: Absent: headache *Physical Exam - Vital Signs Last Vital Signs Temp Pulse Resp BP Pulse Ox 98 F 118 H 17 166/98 98 05/29/18 11:18 05/29/18 11:18 05/29/18 11:18 05/29/18 11:18 05/29/18 11:18 - Physical Exam Comments: GENERAL: Well-appearing, well-nourished. No apparent distress. HEENT: Normocephalic, atraumatic. PERRL, EOM intact. CARDIOVASCULAR: Normal S1, S2. Tachycardic rate and regular rhythm. PULMONARY: No evidence of respiratory distress. Lungs clear to auscultation bilaterally. No wheezing, rales or rhonchi. ABDOMEN: Soft, non-distended, non-tender. EXTREMITIES: Normal ROM in all four extremities. No gross deformities. SKIN: Warm, dry. No rash NEUROLOGICAL: No focal neurological deficits. Moderate Sedation - Procedure Monitoring Vital Signs: Procedure Monitoring Vital Signs Temperature 98 F 05/29/18 11:18 Pulse Rate 118 H 05/29/18 11:18 Respiratory Rate 17 05/29/18 11:18 Blood Pressure 166/98 05/29/18 11:18 O2 Sat by Pulse Oximetry (%) 98 05/29/18 11:18 Medical Decision Making - Medical Decision Making 72 yo M w a hx of urinary retention 2/2 BPH, Resection of colon cancer 15+ years ago without recurrence, glaucoma, presents with urinary retention since last night at 10 pm. He states that this typically happens when he eats food that he shouldn't eat. Last night he had a BBQ which was the trigger for his current urinary retention. He has been seen in this ER many times for this exact same complaint of urinary retention. He was last seen here in October of 2017 for the same reason. VS: Tachycardic, hypertensive DDx IBNLT: Urinary retention, Urinary obstruction, UTI/Pylo, Renal colic, obstructing stone. Plan: Caballero catheter to relieve discomfort, UA/UC, re-assess. - After placement of a urinary catheter 850 cc of urine came out. UA/UC unremarkable. - Will DC and have patient follow up with his urologist. *DC/Admit/Observation/Transfer Diagnosis at time of Disposition: Urinary retention with incomplete bladder emptying - Discharge Dispostion Disposition: HOME Condition at time of disposition: Stable Decision to Admit order: No - Referrals Referrals: José Ruiz MD [Non Staff, Medical] - Smita Lopez MD [Non Staff, Medical] - - Patient Instructions Printed Discharge Instructions: DI for Urinary Retention in Men Additional Instructions: You came into the ER with urinary retention. We placed a caballero catheter, drained your bladder, and you felt better. We sent your urine to the lab which showed no signs of infection. We are sending you home with the urine bag. Keep this in until you can see your urologist. Please try to avoid triggers which cause you to experience urinary retention. Come back to the ER if your pain worsens, you get a fever, can't pee, or have any other new or worsening concerns. Thank you for coming to the [facility] ER. We hope you feel better soon! Print Language: BELARUSIAN - Post Discharge Activity
[2018-05-29 12:10] VITALS: BP 119/76; PULSE 87
--- NOTE | 2018-05-29 12:14 | PDOC ---
Attending Attestation - Resident Resident Name: Ventura Aquino - ED Attending Attestation I have performed the following: I have examined & evaluated the patient, The case was reviewed & discussed with the resident, I agree w/resident's findings & plan - HPI HPI: 05/29/18 12:12 72 yo M w a hx of urinary retention 2/2 BPH, Resection of colon cancer 15+ years ago without recurrence, glaucoma, presents with urinary retention since last night at 10 pm. he ate BBQ last night, which was his trigger - Physicial Exam PE: 05/29/18 12:12 NAD, well appearing, PERRL, EOMI, MMM, nl conjunctiva, anicteric; neck supple. lungs clear, RRR, abdomen soft nontender. normal external genitalia. RODRIGUEZ x4, no focal neuro deficits. No peripheral edema. normal color for ethnicity, WWP. - Medical Decision Making 05/29/18 12:13 hpi as documented VS with mild tachy 2/2 pain, no fever, normotensive. acute urinary retention comfortable after placement of Caballero catheter with clear yellow urine ~850cc. trigger identified, diet modifications and avoid triggers. urology f/u as outpatient. caballero to be maintained, drain via leg bag. c/w home meds, including flomax. UA neg for infection, small blood likely traumatic, f/u culture trial of void with urologist as outpatient, Dr. Ku repeat VS normalized, pain controlled Pt to be discharged in stable condition. Patient made aware of impression and plan, return precautions discussed (including but not limited to worsening pain or symptoms), fevers, or signs of infection, chest pain, respiratory distress, inability to tolerate oral intake, dehydration, syncope). Follow up with PMD and /or urology specialist as recommended, follow up information provided, take medications as instructed for duration of time. continue with supportive care, avoid triggers and precipitants. Patient does not suffer from an acute life- threatening medical condition at this time she is safe for outpatient follow- up. 05/29/18 12:34 05/29/18 12:35
[2018-05-29 12:23] LABS: URINE APPEARANCE HAZY; URINE BILIRUBIN NEGATIVE (NEGATIVE); URINE COLOR YELLOW; URINE GLUCOSE (UA) NEGATIVE (NEGATIVE); URINE KETONE NEGATIVE (NEGATIVE)
[2018-05-29 12:24] LABS: URINE LEUK ESTERASE NEGATIVE (NEGATIVE); URINE NITRITE NEGATIVE (NEGATIVE); URINE PROTEIN NEGATIVE (NEGATIVE); URINE UROBILINOGEN 0.2 (0.2-1.0)
[2018-05-29 12:26] LABS: EPI CELLS FEW /HPF; URINE BACTERIA NONE SEEN /hpf (NEGATIVE); URINE RBC 0-2 /hpf (0-3); URINE WBC 0-2 (0-2)
== END 2018-05-29 12:45 | disposition home or self-care (01) ==
LOC: FER 11:18
PROC: 0T9B70Z Drainage of Bladder with Drainage Device, Via Natural or Artificial Opening (ICD-10-PCS; principal; 2018-05-29)
DX: R33.9 Retention of urine, unspecified (principal); Z85.038 Personal history of other malignant neoplasm of large intestine; H40.9 Unspecified glaucoma
CPT/HCPCS: 81003; 81015; 87086; 99283-25

== ENCOUNTER 2018-09-03 11:07 | Emergency (ER) | payer OTHER, BC ==
--- NOTE | 2018-09-03 11:34 | PDOC ---
History of Present Illness - General Chief Complaint: Urinary Problem Stated Complaint: URINARY RETENTION Time Seen by Provider: 09/03/18 11:20 History Source: Patient Exam Limitations: No Limitations - History of Present Illness Initial Comments: 09/03/18 11:31 72-year-old male history of previous urinary retention BPH here today complaining of urinary retention since last PM. Patient is describing lower abdominal discomfort has tried to urinate with difficulty denies any fevers or chills no flank pain. He is followed by a urologist Dr. clay at [facility] no other complaints Past History - Past Medical History Allergies/Adverse Reactions: Allergies Allergy/AdvReac Type Severity Reaction Status Date / Time No Known Allergies Allergy Verified 09/03/18 11:39 Home Medications: Ambulatory Orders Dutasteride/Tamsulosin HCl [Amber 0.5-0.4 mg Capsule] 1 each PO DAILY 10/26/13 Travoprost [Travatan Z] 1 drop OU DAILY 01/25/16 Cancer: Yes (COLON AND LUNG, NOT prostate) COPD: No Disorders: Yes (URINARY RETENTION, PROSTATE HYPERTOPHY) - Surgical History Abdominal Surgery: Yes (COLON RESECTION TEMPORARY (NOW CLOSED) JEJUNOSTOMY) - Immunization History Immunization Up to Date: Yes - Suicide/Smoking/Psychosocial Hx Smoking Status: Yes Smoking History: Never smoked Have you smoked in the past 12 months: No Number of Cigarettes Smoked Daily: 1 Cigars Per Day: 0 'Breaking Loose' booklet given: 10/26/13 Hx Alcohol Use: No (glass of wine 2-3x/week) Drug/Substance Use Hx: No Substance Use Type: None Review of Systems - Review of Systems Constitutional: No: Chills HEENTM: No: Eye Pain Respiratory: No: Cough, Orthopnea Cardiac (ROS): No: Chest Pain ABD/GI: No: Abdominal Distended : Yes: Other (retention) Musculoskeletal: No: Back Pain, Gout, Joint Pain All Other Systems: Reviewed and Negative *Physical Exam - Physical Exam Comments: Awake alert no acute distress but appears uncomfortable. Lungs are clear bilaterally heart is regular without any murmurs rubs or gallops abdomen is soft there is palpable bladder distention in the suprapubic region with mild tenderness extremities are warm and well-perfused no peripheral edema neurologically patient is alert and oriented 3 Medical Decision Making - Medical Decision Making 09/03/18 11:33 72-year-old male history of urinary retention here with recurrent retention. Plan Caballero catheter we'll send UA to rule out any underlying infection. Likely discharge with Caballero leg bag and follow up outpatient urologist Dr. clay *DC/Admit/Observation/Transfer Diagnosis at time of Disposition: Urinary retention - Discharge Dispostion Disposition: HOME Condition at time of disposition: Improved - Referrals Referrals: José Ruiz MD [Non Staff, Medical] - - Patient Instructions Printed Discharge Instructions: How to Care for Your Caballero Catheter -- Male, DI for Urinary Retention in Men Additional Instructions: you should use the caballero leg bag until you can follow up with your urologist. call to schedule an appointment with dr Ruiz in the next week. see referral information for the phone number. return for difficulty of caballero to drain, feveer chills, blood in urine or any concerns. - Post Discharge Activity
[2018-09-03 11:38] VITALS: BP 150/95; PULSE 97; TEMP 98.3; BMI 23.1
== END 2018-09-03 12:16 | disposition home or self-care (01) ==
LOC: FER 11:07
DX: R33.9 Retention of urine, unspecified (principal); N40.0 Benign prostatic hyperplasia without lower urinary tract symptoms; Z72.0 Tobacco use; Z85.038 Personal history of other malignant neoplasm of large intestine; Z85.118 Personal history of other malignant neoplasm of bronchus and lung
CPT/HCPCS: 81003; 81015; 99282-25

== ENCOUNTER 2018-12-17 08:30 | Emergency (ER) | payer OTHER, BC ==
--- NOTE | 2018-12-17 08:34 | PDOC ---
History of Present Illness - General Chief Complaint: Urinary Problem Stated Complaint: URINARY RETENTION Time Seen by Provider: 12/17/18 08:34 History Source: Patient Exam Limitations: No Limitations - History of Present Illness Initial Comments: 12/17/18 09:08 Pt presents to the ED complaining of urinary retention and abdominal distention since yesterday afternoon. Has been unable to urinate except for small dribbles since then. denies fever, nausea or vomiting or dysuria. Caballero placed in the ED with complete relief of his symptoms. Past History - Past Medical History Allergies/Adverse Reactions: Allergies Allergy/AdvReac Type Severity Reaction Status Date / Time No Known Allergies Allergy Verified 12/17/18 08:31 Home Medications: Ambulatory Orders Dutasteride/Tamsulosin HCl [Amber 0.5-0.4 mg Capsule] 1 each PO DAILY 10/26/13 Travoprost [Travatan Z] 1 drop OU DAILY 01/25/16 Cancer: Yes (COLON AND LUNG, NOT prostate) COPD: No Disorders: Yes (URINARY RETENTION, PROSTATE HYPERTOPHY) - Surgical History Abdominal Surgery: Yes (COLON RESECTION TEMPORARY (NOW CLOSED) JEJUNOSTOMY) - Immunization History Immunization Up to Date: Yes - Suicide/Smoking/Psychosocial Hx Smoking Status: Yes Smoking History: Never smoked Have you smoked in the past 12 months: No Number of Cigarettes Smoked Daily: 1 Cigars Per Day: 0 'Breaking Loose' booklet given: 10/26/13 Hx Alcohol Use: No (glass of wine 2-3x/week) Drug/Substance Use Hx: No Substance Use Type: None Review of Systems - Review of Systems Able to Perform ROS?: Yes Is the patient limited French proficient: No Constitutional: No: Symptoms Reported, See HPI, Chills, Diaphoresis, Fever, Loss of Appetite, Malaise, Night Sweats, Weakness, Weight Stable, Unintentional Wgt. Loss, Unexplained wgt Loss, Other HEENTM: No: Symptoms Reported, See HPI, Eye Pain, Blurred Vision, Tearing, Recent change in vision, Double Vision, Cataracts, Ear Pain, Ocular Prothesis, Ear Discharge, Nose Pain, Nose Congestion, Tinnitus, Nose Bleeding, Hearing Loss , Throat Pain, Throat Swelling, Mouth Pain, Dental Problems, Difficulty Swallowing, Mouth Swelling, Other Respiratory: No: Symptoms reported, See HPI, Cough, Orthopnea, Shortness of Breath, SOB with Exertion, SOB at Rest, Stridor, Wheezing, Productive cough, Hemoptysis, Other Cardiac (ROS): No: Symptoms Reported, See HPI, Chest Pain, Edema, Irregular Heart Rate, Lightheadedness, Palpitations, Syncope, Chest Tightness, Other ABD/GI: Yes: Abdominal Distended. No: Symptoms Reported, See HPI, Abd. Pain w/ defecation, Blood Streaked Bowels, Constipated, Diarrhea, Difficulty Swallowing , Nausea, Poor Appetite, Poor Fluid Intake, Rectal Bleeding, Vomiting, Indigestion, Abdominal cramping, Tarry Stools, Other : Yes: Other (urinary retention) Musculoskeletal: No: Symptoms Reported, See HPI, Back Pain, Gout, Joint Pain, Joint Swelling, Muscle Pain, Muscle Weakness, Neck Pain, Joint Stiffness, Other Integumentary: No: Symptoms Reported, See HPI, Bruising, Change in Color, Change in Hair/Nails, Dryness, Erythema, Flushing, Lesions, Lumps, Pallor, Pruritus, Rash, Sweating, Other *Physical Exam - Physical Exam Comments: 12/17/18 09:10 gen: alert, NAD CV: rrr no m/r/g Pulm: CTA b/l Abdomen: soft, non tender, non distended ( post caballero placement) ext: no edema or deformity. Medical Decision Making - Medical Decision Making 12/17/18 09:11 Pt presents to the ED with urinary retention. Multiple visits to the ED for similar complaints. Feels complete relief after caballero placement in the ED--> 400 cc out after caballero placement. No symptoms suggestive of UTI. Patent has follow up with urologist on Wednesday. Will discharge home. *DC/Admit/Observation/Transfer Diagnosis at time of Disposition: Urinary retention with incomplete bladder emptying - Discharge Dispostion Disposition: HOME Condition at time of disposition: Good Decision to Admit order: No - Referrals - Patient Instructions Printed Discharge Instructions: DI for Urinary Retention in Men Additional Instructions: you came to the ED for urinary retention. We placed a catheter in the ED which relieved the blockage. You should return to the ED for worsening symptoms, if the caballero stops draining urine, recurrent abdominal distention and pain, fever, vomiting, other new symptoms. Make sure that you follow up with your urologist Dr. Hackett. - Post Discharge Activity
[2018-12-17] MEDS ORDERED: LIDOCAINE HCL 2% JELLY 10 ML CARTRIDGE ONE (08:53)
[2018-12-17 09:11] VITALS: TEMP 98.2; BMI 24.3
[2018-12-17 09:12] VITALS: BP 138/82; PULSE 77
== END 2018-12-17 09:24 | disposition home or self-care (01) ==
LOC: FER 08:30
PROC: 0T9B70Z Drainage of Bladder with Drainage Device, Via Natural or Artificial Opening (ICD-10-PCS; principal; 2018-12-17)
DX: R33.9 Retention of urine, unspecified (principal); Z85.038 Personal history of other malignant neoplasm of large intestine
CPT/HCPCS: 99282-25

== ENCOUNTER 2019-04-18 07:14 | Emergency (ER) | payer OTHER, BC ==
[2019-04-18 07:26] VITALS: BP 155/87; PULSE 88; TEMP 97.8; BMI 24.3
--- NOTE | 2019-04-18 07:42 | PDOC ---
History of Present Illness - General Chief Complaint: Urinary Problem Stated Complaint: URINARY RETENTION Time Seen by Provider: 04/18/19 07:15 History Source: Patient, Old Records Exam Limitations: No Limitations - History of Present Illness Initial Comments: 04/18/19 07:35 73-year-old male with history of BPH and frequent bouts of urinary retention with several ED visits in the past requiring Caballero catheterization for bladder decompression presents now with sensation of urinary retention for about 6 hours. Patient was in his usual state of good health, compliant with his BPH medication, last urinated normally around 10 PM, and awoke around 1 AM and began having low urine output with dribbling and sensation of incomplete emptying requiring hourly visits to the restroom without full urination. Began to develop some fullness in his pelvis, presents for evaluation. No fevers or chills, no flank pain, no generalized abdominal pain, no lightheadedness, and no other complaints. Patient reports he and his urologist in [place] have trialed restoring some diet restrictions, most recently caffeine. The patient started having 3 cups of coffee per day and feels this may have been the cause. Past History - Past Medical History Allergies/Adverse Reactions: Allergies Allergy/AdvReac Type Severity Reaction Status Date / Time No Known Allergies Allergy Verified 04/18/19 07:15 Home Medications: Ambulatory Orders Dutasteride/Tamsulosin HCl [Amber 0.5-0.4 mg Capsule] 1 each PO DAILY 10/26/13 Travoprost [Travatan Z] 1 drop OU DAILY 01/25/16 Cancer: Yes (COLON AND LUNG, NOT prostate) COPD: No Disorders: Yes (URINARY RETENTION, PROSTATE HYPERTOPHY) - Surgical History Abdominal Surgery: Yes (COLON RESECTION TEMPORARY (NOW CLOSED) JEJUNOSTOMY) - Immunization History Immunization Up to Date: Yes - Psycho Social/Smoking Cessation Hx Smoking Status: Yes Smoking History: Never smoked Have you smoked in the past 12 months: No Number of Cigarettes Smoked Daily: 1 Cigars Per Day: 0 Information on smoking cessation initiated: No 'Breaking Loose' booklet given: 10/26/13 Hx Alcohol Use: No Drug/Substance Use Hx: No Substance Use Type: None Review of Systems - Review of Systems Constitutional: No: Chills, Fever, Night Sweats Respiratory: No: Shortness of Breath Cardiac (ROS): No: Chest Pain, Edema, Lightheadedness ABD/GI: No: Constipated, Diarrhea, Nausea, Vomiting : Yes: See HPI. No: Flank Pain Musculoskeletal: No: Back Pain Neurological: No: Paresthesia, Tingling All Other Systems: Reviewed and Negative *Physical Exam - Vital Signs Last Vital Signs Temp Pulse Resp BP Pulse Ox 97.8 F 88 16 155/87 97 04/18/19 07:18 04/18/19 07:18 04/18/19 07:18 04/18/19 07:18 04/18/19 07:18 - Physical Exam 04/18/19 07:39 Vital signs normal, afebrile GENERAL: Well appearing in nad, comfortable and smiling. Feels better after Caballero catheter placed. HEAD: Normal with no signs of trauma. EYES: PERRL, EOMI, sclera anicteric, conjunctiva clear with no pallor. ENT: Moist mucous membranes. NECK: Normal range of motion, supple. HEART: Regular rate and rhythm, normal S1 and S2 without murmur or rub. ABDOMEN: Soft/nontender/nondistended including bladder. BS wnl. No guarding or rebound. No palpable masses. No cvat. catheter in place drained 525cc of clear urine. EXTREMITIES: Normal range of motion, no edema. 2+ distal pulses. NEUROLOGICAL: Cranial nerves II through XII grossly intact. Normal speech, normal gait. PSYCH: Normal mood, normal affect. SKIN: Warm, Dry, no rashes or lesions noted. Healed ex-lap incisional scar to abdomen. Medical Decision Making - Medical Decision Making 04/18/19 07:42 Healthy and high functioning 73-year-old male with h/o BPH and urinary retention p/w urinary retention for about 8 hours without other red flags and without systemic symptoms or findings. No preceding sxs of UTI, + medical compliance, possible diet discrepancy. Caballero cathether placed with complete relief of sxs after about 600cc of clear yellow urine removed. UA sent Exam benign, vitals stable, pt feeling well Pt has direct communication with his Urologist and he will f/u with him within 24h Agrees with d/c plan with caballero to leg bag, understands return criteria. Discharge - Discharge Information Problems reviewed: Yes Clinical Impression/Diagnosis: Urinary retention due to benign prostatic hyperplasia Condition: Improved Disposition: HOME - Follow up/Referral Referrals: Smita Lopez MD [Primary Care Provider] - José Ruiz MD [Non Staff, Medical] - - Patient Discharge Instructions Patient Printed Discharge Instructions: How to Care for Your Caballero Catheter -- Male, DI for Urinary Retention in Men Additional Instructions: Activity as tolerated. Stay hydrated. You presented in urinary retention, which was treated with a Caballero catheter that drained about 600cc of clear urine. A urinalysis is pending, and you will be called if the results suggest infection that would require antibiotics. As discussed, speak to your Urologist today about next steps and arranging follow-up within 24-48 hours. Tylenol 1000 mg every 8 hours as needed for any discomfort. Continue your medications as previously prescribed by your physician. You should follow up with your Urologist, Dr. Ruiz, as soon as possible regarding today's emergency department visit. Return to the emergency department for any new or concerning symptoms, particularly blockage of urine output in the caballero bag, abdominal or flank pain , fever/chills, vomiting or light-headedness. - Post Discharge Activity
[2019-04-18 08:20] LABS: EPITHELIAL CELLS RARE /hpf
== END 2019-04-18 07:52 | disposition home or self-care (01) ==
LOC: FER 07:14
PROC: 0T9B70Z Drainage of Bladder with Drainage Device, Via Natural or Artificial Opening (ICD-10-PCS; principal; 2019-04-18)
DX: R33.9 Retention of urine, unspecified (principal); N40.0 Benign prostatic hyperplasia without lower urinary tract symptoms
CPT/HCPCS: 51702; 81003; 81015; 99282-25

== ENCOUNTER 2019-04-24 00:31 | Emergency (ER) | payer OTHER, BC ==
[2019-04-24] MEDS ORDERED: CIPROFLOXACIN 500 MG TABLET (RESTRICTED TO ID) PO ONE (00:46)
--- NOTE | 2019-04-24 00:49 | PDOC ---
History of Present Illness - General Chief Complaint: Urinary Problem Stated Complaint: URINARY RETENTION Time Seen by Provider: 04/24/19 00:34 History Source: Patient Exam Limitations: No Limitations - History of Present Illness Initial Comments: 04/24/19 00:47 This is a 73-year-old male who comes in complaining of urinary retention. Patient was here 5 days ago with urinary retention and remove the catheter yesterday. Patient now comes in complaining that he has been unable to urinate times several hours. A Wills catheter was placed and approximately 500 cc of urine drained urine was clear. Patient otherwise denied any complaints of fevers, chills, nausea vomiting or diarrhea. Allergies: as per nursing notes Past Medical History: Enlarged prostate Social history: Lives with family. No smoking. No alcohol. No illicit drugs. Surgical history: None General: No fevers or chills, no weakness, no weight loss HEENT: No change in vision. No sore throat,. No ear pain CardioVascular: no chest discomfort. No shortness of breath Respiratory:No cough, or wheezing. Gastrointestinal: no nausea, vomiting, diarrhea or constipation, No rectal bleeding Genitourinary: No dysuria, hematuria, or frequency, urinary retention Musculoskeletal: No joint or muscle pain or swelling Neurologic: No headache, vertigo, dizziness or loss of consciousness Psychiatric: nor depression Skin: No rashes or easy bruising Endocrine: no increased thirst or abnormal weight change Allergic: no skin or latex allergy All other systems reviewed and normal GENERAL: The patient is awake, alert, and fully oriented, in no acute distress. HEAD: Normal with no signs of trauma. EYES: Pupils equal, round and reactive to light, extraocular movements intact, sclera anicteric, conjunctiva clear. EXTREMITIES:atraumatic, Normal range of motion, no edema. NEUROLOGICAL: Normal speech, normal gait. PSYCH: Normal mood, normal affect. SKIN: Warm, Dry, normal turgor, no rashes or lesions noted. Assessment and plan: This is a 73-year-old male with urinary retention. Wills catheter was placed and then placed to a leg bag. Patient started on Cipro will follow-up with his urologist this week Past History - Past Medical History Allergies/Adverse Reactions: Allergies Allergy/AdvReac Type Severity Reaction Status Date / Time No Known Allergies Allergy Verified 04/18/19 07:15 Home Medications: Ambulatory Orders Dutasteride/Tamsulosin HCl [Amber 0.5-0.4 mg Capsule] 1 each PO DAILY 10/26/13 Travoprost [Travatan Z] 1 drop OU DAILY 01/25/16 Ciprofloxacin HCl [Cipro] 500 mg PO BID #10 tablet 04/24/19 Cancer: Yes (COLON AND LUNG, NOT prostate) COPD: No Disorders: Yes (URINARY RETENTION, PROSTATE HYPERTOPHY) - Surgical History Abdominal Surgery: Yes (COLON RESECTION TEMPORARY (NOW CLOSED) JEJUNOSTOMY) - Immunization History Immunization Up to Date: Yes - Psycho Social/Smoking Cessation Hx Smoking Status: Yes Smoking History: Never smoked Have you smoked in the past 12 months: No Number of Cigarettes Smoked Daily: 1 Cigars Per Day: 0 'Breaking Loose' booklet given: 10/26/13 Hx Alcohol Use: No (glass of wine 2-3x/week) Drug/Substance Use Hx: No Substance Use Type: None Discharge - Discharge Information Problems reviewed: Yes Clinical Impression/Diagnosis: Urinary retention Condition: Stable Disposition: HOME - Admission No - Follow up/Referral - Patient Discharge Instructions Additional Instructions: Wear the leg bag until you see the urologist Call your urologist in the morning for an appointment Take Cipro 1 tablet twice a day for 5 days Return to the emergency department immediately with ANY new, persistent or worsening symptoms. Continue any medications as previously prescribed by your physician. You should follow up with your primary doctor as soon as possible regarding today's emergency department visit. . Please make sure your doctor reviews the results of your emergency evaluation. Thank you for coming to the Emergency Department today for your care. It was a pleasure to see you today. Please note that your evaluation is INCOMPLETE until you follow-up with your doctor. - Post Discharge Activity
[2019-04-24] MEDS ORDERED: CIPROFLOXACIN 250 MG TABLET (RESTRICTED TO ID) PO ONE (00:51)
[2019-04-24 01:04] VITALS: BP 145/87; PULSE 80; TEMP 98.4; BMI 24.3
== END 2019-04-24 01:11 | disposition home or self-care (01) ==
LOC: FER 00:31
PROC: 0T9B70Z Drainage of Bladder with Drainage Device, Via Natural or Artificial Opening (ICD-10-PCS; principal; 2019-04-24)
DX: R33.9 Retention of urine, unspecified (principal); Z85.038 Personal history of other malignant neoplasm of large intestine
CPT/HCPCS: 99281-25

== ENCOUNTER 2019-05-28 07:49 | Emergency (ER) | payer OTHER, BC ==
[2019-05-28 07:54] VITALS: TEMP 98.2; BMI 24.3
--- NOTE | 2019-05-28 08:15 | PDOC ---
History of Present Illness - General Chief Complaint: Urinary Problem Stated Complaint: URINARY RETENTION Time Seen by Provider: 05/28/19 08:15 - History of Present Illness Initial Comments: 05/28/19 09:02 Chief complaint: Urinary retention HPI: Recurrent urinary retention, every few months in the last year, 3 times in the last 2 months. Requires temporary Wills catheter. Under the care of urologist. Review of systems: No fever/chills, back pain, dysuria or other urinary tract symptoms. Mild suprapubic discomfort without nausea vomiting or diarrhea Past medical history: Resection for colon cancer. In remission. Social/family history reviewed and noncontributory Physical exam: Alert and oriented well-developed well-nourished mild distress due to inability to urinate but cooperative Afebrile, initial blood pressure and pulse were elevated, decreased with catheterization and elimination of discomfort Abdomen mildly distended, suprapubic tenderness, no guarding or rebound. Bladder percusses to umbilicus. Impression: Recurrent urinary retention, BPH Plan: Wills catheter was placed with a drainage of over 500 cc of clear urine, patient's discomfort relieved. Leg bag attached and will follow-up with urologist. UA clear except for trace blood. Fully ambulatory and in no pain or other distress at discharge. 05/28/19 09:06 Past History - Past Medical History Allergies/Adverse Reactions: Allergies Allergy/AdvReac Type Severity Reaction Status Date / Time No Known Allergies Allergy Verified 05/28/19 07:50 Home Medications: Ambulatory Orders Dutasteride/Tamsulosin HCl [Amber 0.5-0.4 mg Capsule] 1 each PO DAILY 10/26/13 Travoprost [Travatan Z] 1 drop OU DAILY 01/25/16 Ciprofloxacin HCl [Cipro] 500 mg PO BID #10 tablet 04/24/19 Cancer: Yes (COLON AND LUNG, NOT prostate) COPD: No Disorders: Yes (URINARY RETENTION, PROSTATE HYPERTOPHY) - Surgical History Abdominal Surgery: Yes (COLON RESECTION TEMPORARY (NOW CLOSED) JEJUNOSTOMY) - Immunization History Immunization Up to Date: Yes - Psycho Social/Smoking Cessation Hx Smoking Status: Yes Smoking History: Never smoked Have you smoked in the past 12 months: No Number of Cigarettes Smoked Daily: 0 Cigars Per Day: 0 'Breaking Loose' booklet given: 10/26/13 Hx Alcohol Use: No Drug/Substance Use Hx: No Substance Use Type: None *Physical Exam - Vital Signs Last Vital Signs Temp Pulse Resp BP Pulse Ox 98.2 F 117 H 18 180/110 H 99 05/28/19 07:49 05/28/19 07:49 05/28/19 07:49 05/28/19 07:49 05/28/19 07:49 Discharge - Discharge Information Problems reviewed: Yes Clinical Impression/Diagnosis: Urinary retention Condition: Improved Disposition: HOME - Admission No - Follow up/Referral Referrals: Smita Lopez MD [Primary Care Provider] - - Patient Discharge Instructions Patient Printed Discharge Instructions: How to Care for Your Wills Catheter -- Male, DI for Urinary Retention in Men - Post Discharge Activity
[2019-05-28 08:28] VITALS: BP 123/78; PULSE 87
== END 2019-05-28 08:51 | disposition home or self-care (01) ==
LOC: FER 07:49
PROC: 0T9B70Z Drainage of Bladder with Drainage Device, Via Natural or Artificial Opening (ICD-10-PCS; principal; 2019-05-28)
DX: R33.9 Retention of urine, unspecified (principal); Z85.038 Personal history of other malignant neoplasm of large intestine
CPT/HCPCS: 81003; 81015; 99283-25

== ENCOUNTER 2019-10-27 06:56 | Emergency (ER) | payer OTHER, BC ==
--- NOTE | 2019-10-27 07:17 | PDOC ---
History of Present Illness - General Chief Complaint: Urinary Problem Stated Complaint: URINARY RETENTION Time Seen by Provider: 10/27/19 07:15 History Source: Patient Exam Limitations: No Limitations - History of Present Illness Initial Comments: 73 yo M history prior colon CA with jejunostomy s/p reversal, BPH presents with urinary retention. He states he has had multiple prior similar episodes, which tend to be associated with constipation. He has been forgetting his doses of miralax, and now presents with urinary retention since this morning. +Suprapubic pain, relieved upon caballero placement on arrival in the ED. Currently pain free. States he feels much better s/p caballero. Past History - Medical History Allergies/Adverse Reactions: Allergies Allergy/AdvReac Type Severity Reaction Status Date / Time No Known Allergies Allergy Verified 05/28/19 07:50 Home Medications: Ambulatory Orders Dutasteride/Tamsulosin HCl [Amber 0.5-0.4 mg Capsule] 1 each PO DAILY 10/26/13 Travoprost [Travatan Z] 1 drop OU DAILY 01/25/16 Ciprofloxacin HCl [Cipro] 500 mg PO BID #10 tablet 04/24/19 Cancer: Yes (COLON AND LUNG, NOT prostate) COPD: No Disorders: Yes (URINARY RETENTION, PROSTATE HYPERTOPHY) - Surgical History Abdominal Surgery: Yes (COLON RESECTION TEMPORARY (NOW CLOSED) JEJUNOSTOMY) - Immunization History Immunization Up to Date: Yes - Psycho-Social/Smoking History Smoking Status: Yes Smoking History: Never smoked Have you smoked in the past 12 months: No Number of Cigarettes Smoked Daily: 0 Cigars Per Day: 0 'Breaking Loose' booklet given: 10/26/13 Review of Systems - Review of Systems Able to Perform ROS?: Yes Comments:: GENERAL/CONSTITUTIONAL: No fever or chills. No weakness. HEAD, EYES, EARS, NOSE AND THROAT: No change in vision. No ear pain or discharge. No sore throat. CARDIOVASCULAR: No chest pain or shortness of breath. RESPIRATORY: No cough, wheezing, or hemoptysis. GASTROINTESTINAL: No nausea, vomiting, diarrhea or constipation. GENITOURINARY: +Urinary retention. MUSCULOSKELETAL: No joint or muscle swelling or pain. No neck or back pain. SKIN: No rash. NEUROLOGIC: No headache, vertigo, loss of consciousness, or change in strength/sensation. ENDOCRINE: No increased thirst. No abnormal weight change. HEMATOLOGIC/LYMPHATIC: No anemia, easy bleeding, or history of blood clots. ALLERGIC/IMMUNOLOGIC: No hives or skin allergy. *Physical Exam - Physical Exam GENERAL: Awake, alert, and fully oriented, in no acute distress HEAD: No signs of trauma EYES: PERRLA, EOMI, sclera anicteric, conjunctiva clear ENT: Auricles normal inspection, hearing grossly normal, nares patent, oropharynx clear without exudates. Moist mucosa NECK: Normal ROM, supple, no lymphadenopathy, JVD, or masses LUNGS: Breath sounds equal, clear to auscultation bilaterally. No wheezes, and no crackles HEART: Regular rate and rhythm, normal S1 and S2, no murmurs, rubs or gallops ABDOMEN: Soft, nontender, normoactive bowel sounds. No guarding, no rebound. No masses EXTREMITIES: Normal range of motion, no edema. No clubbing or cyanosis. No cords, erythema, or tenderness NEUROLOGICAL: Cranial nerves II through XII grossly intact. Normal speech, normal gait. Motor and sensation intact SKIN: Warm, dry, normal turgor, no rashes or lesions noted. : Caballero in place, draining clear yellow urine. Medical Decision Making - Medical Decision Making 10/27/19 07:41 Pt with relief following caballero placement. UA pending. He has an outside urologist, will f/u. Discharge - Discharge Information Problems reviewed: Yes Clinical Impression/Diagnosis: Urinary retention Condition: Stable Disposition: HOME - Follow up/Referral Referrals: Smita Lopez MD [Primary Care Provider] - - Patient Discharge Instructions - Post Discharge Activity
[2019-10-27 07:35] VITALS: BP 122/80; PULSE 82; TEMP 98.1; BMI 24.1
[2019-10-27 08:10] LABS: EPITHELIAL CELLS RARE /hpf
== END 2019-10-27 07:59 | disposition home or self-care (01) ==
LOC: FER 06:56
PROC: 0T9B70Z Drainage of Bladder with Drainage Device, Via Natural or Artificial Opening (ICD-10-PCS; principal; 2019-10-27)
DX: R33.9 Retention of urine, unspecified (principal)
CPT/HCPCS: 81003; 81015; 87086; 99283-25

== ENCOUNTER 2019-11-26 09:52 | Emergency (ER) | payer OTHER, BC ==
[2019-11-26 09:58] VITALS: TEMP 98; BMI 24.1
[2019-11-26 10:32] VITALS: BP 135/84; PULSE 85
[2019-11-26 10:38] LABS: EPITHELIAL CELLS RARE /hpf
--- NOTE | 2019-11-26 10:40 | PDOC ---
History of Present Illness - General Chief Complaint: Urinary Problem Stated Complaint: UNABLE TO URINATE Time Seen by Provider: 11/26/19 09:55 - History of Present Illness Initial Comments: 11/26/19 10:39 74yo male with a hx of colon CA with jejunostomy s/p reversal, BPH presents with urinary retention. Pt states the last time he was able to urinate was 10p last night. States he has episodes of constipation, and when he is constipated it causes urinary retention. States he has been taking miralax, which helps with the constipation, but did not take it today or yesterday. States he was unsure if he was able to take miralax on a daily basis. States he was planning on following up with his PMD this week for the constipation. Pt denies f/c. No cp/sob. States abd pain because he feels his bladder is full. Pt denies sore th roat, rhinorrhea. No cough. No other complaints. Past History - Medical History Allergies/Adverse Reactions: Allergies Allergy/AdvReac Type Severity Reaction Status Date / Time No Known Allergies Allergy Verified 10/27/19 07:31 Home Medications: Ambulatory Orders Dutasteride/Tamsulosin HCl [Amber 0.5-0.4 mg Capsule] 1 each PO DAILY 10/26/13 Travoprost [Travatan Z] 1 drop OU DAILY 01/25/16 Ciprofloxacin HCl [Cipro] 500 mg PO BID #10 tablet 04/24/19 Cancer: Yes (COLON AND LUNG, NOT prostate) COPD: No Disorders: Yes (URINARY RETENTION, PROSTATE HYPERTOPHY) - Surgical History Abdominal Surgery: Yes (COLON RESECTION TEMPORARY (NOW CLOSED) JEJUNOSTOMY) - Immunization History Immunization Up to Date: Yes - Psycho-Social/Smoking History Smoking Status: Yes Smoking History: Never smoked Have you smoked in the past 12 months: No Number of Cigarettes Smoked Daily: 0 Cigars Per Day: 0 'Breaking Loose' booklet given: 10/26/13 - Substance Abuse Hx (Audit-C & DAST Scrn) How often the patient has a drink containing alcohol: Monthly or less Number of drinks the patient has on a typical day: 1 or 2 How often the patient has six or more drinks on one occasion: Never Score: In Men: 4 or > Positive; In Women: 3 or > Positive: 1 Screen Result (Pos requires Nsg. Audit-10AR): Negative In the last yr the pt used illegal drug/Rx for NonMed reason: No Score: Yes response is considered Positive: 0 Screen Result (Positive result requires Nsg. DAST-10): Negative Review of Systems - Review of Systems Able to Perform ROS?: Yes Is the patient limited Malay proficient: No Constitutional: No: Chills, Fever HEENTM: No: Symptoms Reported Respiratory: No: Cough, Shortness of Breath Cardiac (ROS): No: Chest Pain, Lightheadedness, Palpitations ABD/GI: No: Diarrhea, Nausea, Vomiting, Abdominal cramping : Yes: Other (retention). No: Burning, Dysuria Musculoskeletal: No: Back Pain Neurological: No: Headache All Other Systems: Reviewed and Negative *Physical Exam - Vital Signs Last Vital Signs Temp Pulse Resp BP Pulse Ox 98.0 F 85 18 135/84 100 11/26/19 09:53 11/26/19 10:29 11/26/19 09:53 11/26/19 10:29 11/26/19 09:53 - Physical Exam General Appearance: Yes: Nourished, Appropriately Dressed. No: Apparent Distress HEENT: positive: EOMI, Normal Voice Neck: positive: Supple Respiratory/Chest: positive: Lungs Clear, Normal Breath Sounds. negative: Respiratory Distress Cardiovascular: positive: Regular Rhythm, Regular Rate, S1, S2. negative: Edema Gastrointestinal/Abdominal: positive: Soft. negative: Guarding, Rebound, Tenderness Male Genitalia: positive: other (caballero in place and draining clear yellow urine, bladder not palpable). negative: CVAT Musculoskeletal: positive: Normal Inspection. negative: CVA Tenderness Extremity: positive: Normal Capillary Refill, Normal Inspection, Normal Range of Motion, Other (ambulatory with a steady gait). negative: Swelling, Calf Tenderness Integumentary: positive: Normal Color, Dry, Warm Neurologic: positive: Fully Oriented, Alert, Normal Mood/Affect, Normal Response ED Treatment Course - ADDITIONAL ORDERS Additional order review: Laboratory Results 11/26/19 10:07 Urine Color Yellow Urine Appearance Clear Urine pH 6.5 Urine Protein Negative Urine Glucose (UA) Negative Urine Ketones Negative Urine Blood 1+ H Urine Nitrite Negative Urine Bilirubin Negative Urine Urobilinogen 0.2 Ur Leukocyte Esterase Negative Urine RBC 5-10 Urine WBC Rare Ur Transition Epith Cell Rare Medical Decision Making - Medical Decision Making 11/26/19 10:44 a/p: 74yo male with hx of urinary retention in urinary retention -no recent signs/symptoms of uti -hx of bph -caballero catheter placed and draining urine, bladder not palpable and abd pain resolved -ua and culture sent and reviewed without ua showing an infection -pt has a urology -[facility] urology - Raz Balderrama -will follow up with urology this week, stable for dc to home with a leg bag -discussed miralax therapy and usage in detail and the importance of following up with his PMD and GI as well -answered all questions -pt stable for dc to home 11/26/19 10:49 pt is on a combo flomax pill for BPH and has been compliant with the medication Discharge - Discharge Information Problems reviewed: Yes Clinical Impression/Diagnosis: Urinary retention Condition: Stable Disposition: HOME - Admission No - Follow up/Referral Referrals: Smita Lopez MD [Primary Care Provider] - José Ruiz MD [Non Staff, Medical] - - Patient Discharge Instructions Patient Printed Discharge Instructions: DI for Urinary Retention in Men Additional Instructions: Please take the miralax as discussed. A capful in 8oz water followed by another 8oz glass of water daily. If you develop diarrhea or soft stool, please only take the miralax every other day. Please also follow up with your urologist this week to remove the caballero catheter. Please make an appointment for this week with your PMD to further evaluate your constipation. Please schedule an appointment with your meat packer for a follow up on your constipation as well. Please return to the ER with any further concerns or complaints. - Post Discharge Activity
== END 2019-11-26 10:53 | disposition home or self-care (01) ==
LOC: FER 09:52
DX: R33.9 Retention of urine, unspecified (principal)
CPT/HCPCS: 81003; 81015; 87086; 99283-25

== ENCOUNTER 2019-12-02 01:51 | Emergency (ER) | payer OTHER, BC ==
[2019-12-02 01:56] VITALS: BP 185/101; PULSE 104; TEMP 98.2; BMI 24.7
--- NOTE | 2019-12-02 01:59 | PDOC ---
History of Present Illness - General Chief Complaint: Urinary Problem Stated Complaint: URINARY RETENTION Time Seen by Provider: 12/02/19 01:53 - History of Present Illness Initial Comments: 12/02/19 02:11 This 74-year-old man with a history of colon CA and BPH presents with urinary retention. Patient has been seen here multiple times with urinary retention The patient was seen here 11/25 and he had relief of symptoms after placement of catheter. Catheter was removed 11/29. Following day (yesterday) he began to notice some burning with urination. At approximately 10 PM last night, he began to notice it was difficult to urinate and has had progressive symptoms of urinary retention since then. When he was last seen here with urinary retention there was a question of chronic constipation causing the retention; since then, he has been taking MiraLAX daily and reports daily bowel movements. 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 Past History - Medical History Allergies/Adverse Reactions: Allergies Allergy/AdvReac Type Severity Reaction Status Date / Time No Known Allergies Allergy Verified 12/02/19 01:52 Home Medications: Ambulatory Orders Dutasteride/Tamsulosin HCl [Amber 0.5-0.4 mg Capsule] 1 each PO DAILY 10/26/13 Travoprost [Travatan Z] 1 drop OU DAILY 01/25/16 Ciprofloxacin HCl [Cipro] 500 mg PO BID #10 tablet 12/02/19 Cancer: Yes (COLON AND LUNG, NOT prostate) COPD: No Disorders: Yes (URINARY RETENTION, PROSTATE HYPERTOPHY) - Surgical History Abdominal Surgery: Yes (COLON RESECTION TEMPORARY (NOW CLOSED) JEJUNOSTOMY) - Immunization History Immunization Up to Date: Yes - Psycho-Social/Smoking History Smoking Status: Yes Smoking History: Former smoker Have you smoked in the past 12 months: No Number of Cigarettes Smoked Daily: 0 If you are a former smoker, when did you quit?: 20 yrs ago Cigars Per Day: 0 Information on smoking cessation initiated: No 'Breaking Loose' booklet given: 10/26/13 - Substance Abuse Hx (Audit-C & DAST Scrn) How often the patient has a drink containing alcohol: Monthly or less Score: In Men: 4 or > Positive; In Women: 3 or > Positive: 1 Screen Result (Pos requires Nsg. Audit-10AR): Negative In the last yr the pt used illegal drug/Rx for NonMed reason: No Score: Yes response is considered Positive: 0 Screen Result (Positive result requires Nsg. DAST-10): Negative Review of Systems - Review of Systems Able to Perform ROS?: Yes Comments:: 12 point review of systems is negative except for what is noted in the history of present illness *Physical Exam - Vital Signs Last Vital Signs Temp Pulse Resp BP Pulse Ox 98.2 F 104 H 18 185/101 H 97 12/02/19 01:52 12/02/19 01:52 12/02/19 01:52 12/02/19 01:52 12/02/19 01:52 - Physical Exam GENERAL: Adult male, alert and oriented x3, in mild distress secondary to symptoms of urinary retention HEAD: Normal with no signs of trauma. EYES: PERRLA, EOMI, sclera anicteric, conjunctiva clear. ABDOMEN:.normal bowel sounds; lower abdominal distention and mild tenderness EXTREMITIES: Normal range of motion, no edema. No clubbing or cyanosis. No erythema, or tenderness. NEUROLOGICAL: Cranial nerves intact; gait and speech normal; moving all 4 extremities equally; no focal neurological deficits evident. SKIN: Warm, Dry, normal turgor, no rashes or lesions noted. ED Progress Note - Progress Note Progress Note: 12/02/19 02:55 16 Irish urinary catheter placed without difficulty and 400 mL of slightly cloudy urine obtained. Urinalysis and urine culture and sensitivity sent. Patient had relief of his retention symptoms with passage of catheter UA: 1+LE; +nitrite Because patient has symptoms of urinary tract infection and UA suggestive of UTI, will place patient on Cipro 500 mg twice a day for 5 days, pending results of the culture and sensitivity. He should return to the ER if he has worsening pain, nausea/vomiting or fever/chills He should follow-up with his urologist (in [place]) Discharge - Discharge Information Problems reviewed: Yes Clinical Impression/Diagnosis: Urinary retention, Possible urinary tract infection Condition: Stable - Additional Discharge Information Prescriptions: Ciprofloxacin HCl [Cipro] 500 mg PO BID #10 tablet - Follow up/Referral - Patient Discharge Instructions Patient Printed Discharge Instructions: DI for Urinary Retention in Men Additional Instructions: Drink plenty of fluids Keep catheter in place with leg bag Catheter removal as per your urologist Cipro 500 mg twice a day for 5 days We will call you if urine culture is negative or if organism is resistant to Cipro Return to ER if you have worsening pain, nausea, fever/chills - Post Discharge Activity
[2019-12-02] MEDS ORDERED: CIPROFLOXACIN 500 MG TABLET (RESTRICTED TO ID) PO ONE (02:40)
[2019-12-02] MEDS ORDERED: CIPROFLOXACIN 250 MG TABLET (RESTRICTED TO ID) PO ONE (03:00)
[2019-12-02 03:14] LABS: URINE APPEARANCE Clear; URINE BILIRUBIN Negative (NEGATIVE); URINE COLOR Yellow; URINE GLUCOSE (UA) Negative (NEGATIVE); URINE KETONE Negative (NEGATIVE); URINE LEUK ESTERASE 1+ (NEGATIVE); URINE NITRITE Positive (NEGATIVE); URINE PROTEIN Negative (NEGATIVE); URINE UROBILINOGEN 0.2 mg/dL (0.2-1.0)
[2019-12-02 04:42] LABS: URINE BACTERIA MANY /uL (0-1359); URINE WBC 15-20 /uL (0-25.8)
== END 2019-12-02 03:08 ==
LOC: FER 01:51
DX: R33.9 Retention of urine, unspecified (principal)
CPT/HCPCS: 81003; 87086; 87186; 99283-25

== ENCOUNTER 2019-12-21 15:07 | Emergency (ER) | payer OTHER ==
[2019-12-21 15:28] VITALS: BP 141/83; PULSE 89; TEMP 98.8; BMI 24.3
--- NOTE | 2019-12-21 16:11 | PDOC ---
History of Present Illness - General Chief Complaint: Urinary Problem Stated Complaint: URINARY RETENTION Time Seen by Provider: 12/21/19 15:15 History Source: Patient Exam Limitations: No Limitations - History of Present Illness Initial Comments: 12/21/19 1640 74-year-old male history of colon CA status post resection reanastomosis BPH here with urinary retention. Patient has been seen several times for the past he was also recently treated for UTI with ciprofloxacin currently not taking any antibiotics. Here with inability to urinate since this a.m. he has been urinating but only small amounts at a time denies any hematuria no fevers no chills no flank pain did have lower abdominal pressure. States he has follow-up with his urologist Dr. Lyon in approximately 1 week no other current complaints Past History - Medical History Allergies/Adverse Reactions: Allergies Allergy/AdvReac Type Severity Reaction Status Date / Time No Known Allergies Allergy Verified 12/21/19 15:09 Home Medications: Ambulatory Orders Dutasteride/Tamsulosin HCl [Amber 0.5-0.4 mg Capsule] 1 each PO DAILY 10/26/13 Travoprost [Travatan Z] 1 drop OU DAILY 01/25/16 Ciprofloxacin HCl [Cipro] 500 mg PO BID #10 tablet 12/02/19 Cancer: Yes (COLON AND LUNG, NOT prostate) COPD: No Disorders: Yes (URINARY RETENTION, PROSTATE HYPERTOPHY) - Surgical History Abdominal Surgery: Yes (COLON RESECTION TEMPORARY (NOW CLOSED) JEJUNOSTOMY) - Immunization History Immunization Up to Date: Yes - Psycho-Social/Smoking History Smoking Status: Yes Smoking History: Never smoked Have you smoked in the past 12 months: No Number of Cigarettes Smoked Daily: 0 If you are a former smoker, when did you quit?: 20 yrs ago Cigars Per Day: 0 Information on smoking cessation initiated: No 'Breaking Loose' booklet given: 10/26/13 - Substance Abuse Hx (Audit-C & DAST Scrn) How often the patient has a drink containing alcohol: Never Score: In Men: 4 or > Positive; In Women: 3 or > Positive: 0 Screen Result (Pos requires Nsg. Audit-10AR): Negative In the last yr the pt used illegal drug/Rx for NonMed reason: No Score: Yes response is considered Positive: 0 Screen Result (Positive result requires Nsg. DAST-10): Negative Review of Systems - Review of Systems Constitutional: No: Chills, Fever HEENTM: No: Eye Pain, Difficulty Swallowing Respiratory: No: Cough, Orthopnea, Shortness of Breath Cardiac (ROS): No: Chest Pain, Edema ABD/GI: No: Diarrhea, Nausea : Yes: Other (retention). No: Burning, Dysuria, Discharge Musculoskeletal: No: Joint Pain Integumentary: No: Bruising Psychiatric: No: Sleep Pattern Change All Other Systems: Reviewed and Negative *Physical Exam - Vital Signs Last Vital Signs Temp Pulse Resp BP Pulse Ox 98.8 F 89 18 141/83 98 12/21/19 15:26 12/21/19 15:26 12/21/19 15:26 12/21/19 15:26 12/21/19 15:26 - Physical Exam 12/21/19 16:42 Awake alert no acute distress lungs are clear bilaterally heart is regular 30 murmurs or gallops abdomen is soft patient is nontender in the abdomen status post Wills placement. Wills is in place draining clear yellow urine extremities are warm well perfused skin is warm and dry neurologic patient is alert and oriented x3 ED Treatment Course - ADDITIONAL ORDERS Additional order review: Laboratory Results 12/21/19 16:00 Urine Color Yellow Urine Appearance Clear Urine pH 5.5 Urine Protein Negative Urine Glucose (UA) Negative Urine Ketones Negative Urine Blood Negative Urine Nitrite Negative Urine Bilirubin Negative Urine Urobilinogen 0.2 Ur Leukocyte Esterase Negative Medical Decision Making - Medical Decision Making 12/21/19 16:42 74-year-old male known history of BPH multiple catheterizations required recently treated for UTI here with urinary retention since this a.m. plan Wills catheter placement patient initially put out 700 cc was feeling much improved urine appears to be clear we will send UA to rule out any underlying infection has follow-up with his urologist Dr. Lyon next week likely DC home with a leg bag 12/21/19 16:45 Patient's UA is negative for UTI Discharge - Discharge Information Problems reviewed: Yes Clinical Impression/Diagnosis: Urinary retention with incomplete bladder emptying Condition: Improved Disposition: HOME - Admission No - Follow up/Referral - Patient Discharge Instructions Patient Printed Discharge Instructions: DI for Urinary Retention in Men Additional Instructions: You should follow-up with your urologist next week as scheduled return for any problems or failure of the catheter to drain. Leave catheter in place return for any fevers chills change in urine color or failure of the bag to drain any urine - Post Discharge Activity
== END 2019-12-21 17:10 | disposition home or self-care (01) ==
LOC: FER 15:07
DX: R39.14 Feeling of incomplete bladder emptying (principal)
CPT/HCPCS: 81003; 87086; 99283-25

== ENCOUNTER 2019-12-27 03:49 | Emergency (ER) | payer OTHER ==
--- NOTE | 2019-12-27 03:55 | PDOC ---
History of Present Illness - General Chief Complaint: Urinary Problem Stated Complaint: "I have urinary retnetion" Time Seen by Provider: 12/27/19 03:55 History Source: Patient Exam Limitations: No Limitations - History of Present Illness Initial Comments: 12/27/19 04:05 74-year-old male history of colon CA status post resection reanastomosis BPH here with urinary retention. Was seen for same 6 days prior, had caballero placed and patient was d/jovita home. Spoke with his urologist today who recommended patient remove caballero (pt. has had caballero many times in the past and his urologist taught him how to remove the caballero himself). States removed caballero ~12 hours prior to presentation but noticed after removal that he wasn't urinating normally and he was only able to pass a very small amount of urine. States he has the sensation to urinate but is unable to. States feels similar to prior episodes of retention. Denies hematuria or dysuria. DEnies abdominal pain but reports some discomfort and a sensation of a full bladder. Has f/u with his tomorrow. No other complaints. Past History - Medical History Allergies/Adverse Reactions: Allergies Allergy/AdvReac Type Severity Reaction Status Date / Time No Known Allergies Allergy Verified 12/27/19 03:57 Home Medications: Ambulatory Orders Dutasteride/Tamsulosin HCl [Amber 0.5-0.4 mg Capsule] 1 each PO DAILY 10/26/13 Travoprost [Travatan Z] 1 drop OU DAILY 01/25/16 Ciprofloxacin HCl [Cipro] 500 mg PO BID #10 tablet 12/02/19 Ciprofloxacin [Cipro -] 500 mg PO Q12H #20 tablet 12/27/19 Cancer: Yes (COLON AND LUNG, NOT prostate) COPD: No Disorders: Yes (URINARY RETENTION, PROSTATE HYPERTOPHY) - Surgical History Abdominal Surgery: Yes (COLON RESECTION TEMPORARY (NOW CLOSED) JEJUNOSTOMY) - Immunization History Immunization Up to Date: Yes - Psycho-Social/Smoking History Smoking Status: Yes Smoking History: Never smoked Have you smoked in the past 12 months: No Number of Cigarettes Smoked Daily: 0 If you are a former smoker, when did you quit?: 20 yrs ago Cigars Per Day: 0 'Breaking Loose' booklet given: 10/26/13 Review of Systems - Review of Systems Able to Perform ROS?: Yes Comments:: 12/27/19 04:08 GENERAL/CONSTITUTIONAL: No fever or chills. No weakness. HEAD, EYES, EARS, NOSE AND THROAT: No change in vision. No ear pain or discharge. No sore throat. CARDIOVASCULAR: No chest pain or shortness of breath. RESPIRATORY: No cough, wheezing, or hemoptysis. GASTROINTESTINAL: No nausea, vomiting, diarrhea or constipation. GENITOURINARY: as per HPI MUSCULOSKELETAL: No joint or muscle swelling or pain. No neck or back pain. SKIN: No rash. NEUROLOGIC: No headache, vertigo, loss of consciousness, or change in strength/sensation. ENDOCRINE: No increased thirst. No abnormal weight change. HEMATOLOGIC/LYMPHATIC: No anemia, easy bleeding, or history of blood clots. ALLERGIC/IMMUNOLOGIC: No hives or skin allergy. *Physical Exam - Physical Exam 12/27/19 04:08 GENERAL: Well appearing, in no acute distress HEENT: NCAT, conjunctiva not injected, MMM, EOMI NECK: Normal ROM, supple LUNGS: CTAB. Good air entry. No wheezes, No Rhonchi and no crackles HEART: RRR, + s1 s2 ABDOMEN: Soft, +mild suprapubic discomfort on palpation (pt. reports feels the need to urinate with palpation), normoactive bowel sounds. No guarding, no rebound. BACK: no midline or paraspinal tenderness EXTREMITIES: Warm and well perfused. No LE edema. FROM. No clubbing or cyanosis. No cords, erythema, or tenderness NEUROLOGICAL: Aox3, Speech fluent, face symmetric, tongue/uvula midline. Sensation grossly intact to light touch. Ambulatory with steady gait. Strength intact. No focal deficits. SKIN: Warm, dry, normal turgor, no rashes or lesions noted Medical Decision Making - Medical Decision Making 12/27/19 04:10 74 yo M h/o BPH here with urinary retention, very low suspicion for infection however will check UA to r/o infection. Plan: -urine -place caballero -anticipate d/c home +/- abx (pending results of UA) with leg bag and return precautions, patient to f/u with his urologist tomorrow at previously scheduled appt This clinical encounter is taking place during a federal and state health care emergency attributable to the novel [place] Virus pandemic. The Tenant Relations Coordinator of the Department of Health and Human Services has declared, pursuant to the Public Health Service Act 319F-3 (42 U.S.C. 247d-6d), that a covered persons activities related to medical countermeasures against COVID-19 will be immune from liability under Federal and State law. 12/27/19 06:34 UA concerning for possible UTI. Will d/c with rx for cipro. Discharge - Discharge Information Problems reviewed: Yes Clinical Impression/Diagnosis: Urinary retention Condition: Stable Disposition: HOME - Additional Discharge Information Prescriptions: Ciprofloxacin [Cipro -] 500 mg PO Q12H #20 tablet - Follow up/Referral - Patient Discharge Instructions Patient Printed Discharge Instructions: DI for Urinary Retention in Men Additional Instructions: Your urine was concerning for an infection. You are being discharged with a prescription for ciprofloxacin to be taken every 12 hours for 10 days. You should follow up with your urologist. Return to the ED for new or worsening symptoms. - Post Discharge Activity
--- OUTSIDE RECORDS SUMMARY | 2019-12-27 03:55 | XMS ---
:1945 Author Organization [facility] Support Name Relationship Address Phone RE Unavailable Unavailable Unavailable MARGOT HAWTHORNE [address] [facility] [place] [place] [address] MARGOT HAWTHORNE Spouse [address] [facility] [place] [place] [address] Re-disclosure Warning The records that you are about to access may contain information from federally- assisted alcohol or drug abuse programs. If such information is present, then the following federally mandated warning applies: This information has been disclosed to you from records protected by federal confidentiality rules (42 CFR part 2). The federal rules prohibit you from making any further disclosure of this information unless further disclosure is expressly permitted by the written consent of the person to whom it pertains or as otherwise permitted by 42 CFR part 2. A general authorization for the release of medical or other information is NOT sufficient for this purpose. The Federal rules restrict any use of the information to criminally investigate or prosecute any alcohol or drug abuse patient.The records that you are about to access may contain highly sensitive health information, the redisclosure of which is protected by Article 27-F of the [facility] Public Health law. If you continue you may haveaccess to information: Regarding HIV / AIDS; Provided by facilities licensed or operated by the [facility] Office of Mental Health; or Provided by the [facility] Office for People With Developmental Disabilities. If such information is present, then the following [facility] mandated warning applies: This information has been disclosed to you from confidential records which are protected by state law. State law prohibits you from making any further disclosure of this information without the specific written consent of the person to whom it pertains, or as otherwise permitted by law. Any unauthorized further disclosure in violation of state law may result in a fine or group home sentence or both. A general authorization for the release of medical or other information is NOT sufficient authorization for further disclosure. Insurance Providers Payer name Policy type Policy ID Covered Covered constitution party's Policy P bear / Coverage constitution party ID relationship to Cerda Inf ormation type cerda MEDICARE [id number] SP [id number] MEDICARE [id number] SP [id number] MEDICARE [id number] SP [id number] 0 [place] OUT OF [id number] SP [id number] MEDICARE [id number] SP [id number] AARP [id number] [place] MED[place] [id number] PART B [employer] OUT OF [id number] SP [id number] [employer] MEDICARE [id number] SP [id number] A
[2019-12-27 03:56] VITALS: TEMP 97.8; BMI 23.9
[2019-12-27 04:31] VITALS: BP 142/78; PULSE 84
[2019-12-27 06:29] LABS: EPI CELLS 1 /uL (0-25.1); HYALINE CASTS 0 /uL (0-3.1); URINE APPEARANCE CLOUDY; URINE BACTERIA >9,000 /uL (0-1359); URINE BILIRUBIN NEGATIVE (NEGATIVE); URINE COLOR YELLOW; URINE GLUCOSE (UA) NEGATIVE (NEGATIVE); URINE KETONE NEGATIVE (NEGATIVE); URINE LEUK ESTERASE 2+ (NEGATIVE); URINE NITRITE POSITIVE (NEGATIVE); URINE PROTEIN TRACE (NEGATIVE); URINE RBC 67 /uL (0-23.9); URINE UROBILINOGEN 0.2 mg/dL (0.2-1.0); URINE WBC 1176 /uL (0-25.8)
== END 2019-12-27 06:48 | disposition home or self-care (01) ==
LOC: FER 03:49
DX: R33.9 Retention of urine, unspecified (principal)
CPT/HCPCS: 81003; 87086; 87186; 99284-25

== ENCOUNTER 2020-01-02 06:27 | Emergency (ER) | payer OTHER, BC ==
--- NOTE | 2020-01-02 06:44 | PDOC ---
History of Present Illness - General Chief Complaint: Urinary Problem Stated Complaint: URINARY RETENTION Time Seen by Provider: 01/02/20 06:30 - History of Present Illness Initial Comments: 01/02/20 06:45 74-year-old male history of colon CA status post resection reanastomosis and BPH presents here with urinary retention. Patient was seen here 12/26 with urinary retention and Wills catheter was placed. Patient was seen by his urologist following day and the patient was instructed to remove his catheter at home yesterday. Patient did well until a few hours prior to presentation when he awakened and found that he was unable to empty his bladder. The patient continues to be on Cipro 500 mg twice a day, prescribed last week for UTI. He denies fever/chills. Patient is scheduled to have colonoscopy on January 14. After that, urologist plans to perform cystoscopy on the patient to further elucidate reasons for patient's recurrent urinary retention. Past History - Medical History Allergies/Adverse Reactions: Allergies Allergy/AdvReac Type Severity Reaction Status Date / Time No Known Allergies Allergy Verified 01/02/20 06:34 Home Medications: Ambulatory Orders Dutasteride/Tamsulosin HCl [Amber 0.5-0.4 mg Capsule] 1 each PO DAILY 10/26/13 Travoprost [Travatan Z] 1 drop OU DAILY 01/25/16 Ciprofloxacin HCl [Cipro] 500 mg PO BID #10 tablet 12/02/19 Cancer: Yes (COLON AND LUNG, NOT prostate) COPD: No Disorders: Yes (URINARY RETENTION, PROSTATE HYPERTOPHY) - Surgical History Abdominal Surgery: Yes (COLON RESECTION TEMPORARY (NOW CLOSED) JEJUNOSTOMY) - Immunization History Immunization Up to Date: Yes - Psycho-Social/Smoking History Smoking Status: Yes Smoking History: Never smoked Have you smoked in the past 12 months: No Number of Cigarettes Smoked Daily: 0 If you are a former smoker, when did you quit?: 20 yrs ago Cigars Per Day: 0 'Breaking Loose' booklet given: 10/26/13 Review of Systems - Review of Systems Able to Perform ROS?: Yes Comments:: 12 point review of systems is negative except for what is noted in the history of present illness *Physical Exam - Physical Exam GENERAL: Adult male, alert and oriented x3, in moderate distress secondary to urinary retention HEAD: Normal with no signs of trauma. EYES: PERRLA, EOMI, sclera anicteric, conjunctiva clear. ABDOMEN:.normal bowel sounds moderate lower abdominal distention with mild tenderness; no rebound or involuntary guarding. EXTREMITIES: Normal range of motion, no edema. No clubbing or cyanosis. No erythema, or tenderness. NEUROLOGICAL: Cranial nerves II through XII grossly intact. Normal speech. No focal neurological deficits. MUSCULOSKELETAL: Back non-tender to palpation, no CVA tenderness SKIN: Warm, Dry, normal turgor, no rashes or lesions noted. ED Progress Note - Progress Note Progress Note: Wills catheter placed without difficulty and 450 mL of clear yellow urine obtained. Patient had marked relief in his symptoms after placement of urinary catheter Discharge - Discharge Information Problems reviewed: Yes Clinical Impression/Diagnosis: Urinary retention Condition: Stable Disposition: HOME - Follow up/Referral - Patient Discharge Instructions Patient Printed Discharge Instructions: DI for Urinary Retention in Men Additional Instructions: Drink plenty fluids Contact urologist today as previously planned Remove catheter as per your urologist's recommendation Continue ciprofloxacin until prescription finished Return to ER as needed if any further urinary retention occurs - Post Discharge Activity
[2020-01-02 06:45] VITALS: BP 173/83; PULSE 87; TEMP 98.2; BMI 23.9
--- OUTSIDE RECORDS SUMMARY | 2020-01-02 07:01 | XMS ---
:1945 Author Organization [facility] Support Name Relationship Address Phone RE Unavailable Unavailable Unavailable MARGOT HAWTHORNE [address] [facility] [place] [address] MARGOT HAWTHORNE Spouse [address] [facility] [address] [place] [address] Re-disclosure Warning The records that you are [...] is protected by Article 27-F of the [facility] Public Health law. If you continue you may haveaccess to information: Regarding HIV / AIDS; Provided by facilities licensed or operated by the [facility] Office of Mental Health; or Provided by the [facility] Office for People With Developmental Disabilities. If such information is present, then the following [facility] mandated warning applies: This information has been [...] law may result in a fine or care home sentence or both. A general authorization for the release of medical or other information is NOT sufficient authorization for further disclosure. Insurance Providers Payer name Policy type Policy ID Covered Covered republican's Policy P bear / Coverage republican ID relationship to Cerda Inf ormation type cerda MEDICARE [id number] SP [id number] 50 0 MEDICARE [id number] SP [id number] 50 0 MEDICARE [id number] SP [id number] 0 [place] OUT OF [id number] SP [id number] MED[place] [id number] SP [id number] AARP [id number] [place] [id number] PART B DOWNSTATE BC OUT OF [id number] SP [id number] [employer] MEDICARE [id number] SP [id number]
== END 2020-01-02 07:14 | disposition home or self-care (01) ==
LOC: FER 06:27
DX: R33.9 Retention of urine, unspecified (principal)
CPT/HCPCS: 99282-25